=== PATIENT | male | born 1940 | race Caucasian/White ===

== ENCOUNTER 2023-10-27 00:45 | Inpatient (IN) | payer MEDICARE, BC, SELFPAY ==
[2023-10-26 20:17] VITALS: BMI 29.2
[2023-10-26 20:26] VITALS: BP 123/86
[2023-10-26 20:30] VITALS: BP 139/82
[2023-10-26 21:00] VITALS: BP 120/87
[2023-10-26 21:30] VITALS: BP 136/96
--- NOTE | 2023-10-26 22:14 | ED.GENMED ---
History of Present Illness
<GEO Naranjo - Last Filed: 10/27/23 01:43>
General
Chief Complaint: Fall
Source: family
Exam Limitations: dementia
Time Seen by Provider: 10/26/23 22:01
Nursing documentation reviewed up to this point in time: agreed with
Travel History
Have you had any contact with someone who has COVID-19?: Unable to Answer
Do you have any symptoms of coronavirus? Fever > 100 degrees, chills, cough, shortness of breath, sore throat, loss of taste or smell, muscle aches, or headache?: Unable to Answer
History of Present Illness
History of Present Illness:
This is an 83 year old male, with a PMH of alzheimers, who presents to the ED via EMS c/o fall. Per pt's , pt was sitting in his chair when she left him for 2 minutes and came back and found him on the floor. Pt was laying on his left side
calling out for his . She was unable to lift him so she called EMS. Immediately after the fall, pt began complaining of left leg pain. Pt's denies any loss of consciousness, nausea or vomiting. History limited due to pt's alzheimers.
Pt does not take any blood thinners or NSAIDs. He does not have any history of any orthopedic surgeries including hip or knee replacements. Pt normally ambulates with a walker and is able to walk albeit very slowly.
Past History
<GEO Naranjo - Last Filed: 10/27/23 01:43>
Past History
ED Past Medical History: Other (Dementia)
ED Past Surgical History: Negative Orthopedic
Patient has exhibited threatening behavior?: No
Social History
Tobacco: Non-smoker
Alcohol: None
Drug: None
Personal:
Living: with family
Employment: Retired
Review of Systems
<GEO Naranjo - Last Filed: 10/27/23 01:43>
Review of Systems
Unable to obtain full review of systems at this time due to: dementia
Other source history: family
All Other Systems: ROS reviewed and negative except as documented in HPI and ROS
Cardiac: Denies syncope
ABD/GI: Denies nausea or vomiting
Phy Exam
<GEO Naranjo - Last Filed: 10/27/23 01:43>
General Physical Exam
General Presentation: mild distress
General age: appears stated age
General Skin: warm and dry
General Habitus: elderly
General Mental: alert
General Hydration: dry mucous membranes
General Chronic Disability: demented
ENT Exam
ENT Exam: pharynx normal, neck supple, normocephalic and other (no masses, lumps, or ecchymoses noted on head.)
Eye Exam
Eye Exam: PERRL
Cardiovascular Exam
Cardiovascular Exam: regular rate/rhythm, no edema and no murmur
Heart Sounds: normal
Pulmonary Exam
Pulmonary Exam: lungs clear, no respiratory distress, no rales, no crackles, no rhonchi, no wheezing and no cough
Oxygen Status: oxygen 2 liters via NC
Gastrointestinal Exam
Gastrointestinal Exam: normal bowel sounds, non tender, soft and non distended
Neurological Exam
Neurological Exam: alert
Musculoskeletal Exam
Musculoskeletal Exam: no edema, neuro vasc intact and other (tenderness to palpation along left anterior and lateral upper leg, limited passive ROM compared to the right. There is no tenderness to palpation along upper extremities and right leg. No
tenderness along left hip or knee. No ecchymoses or lacerations noted.)
Skin Exam
Skin Exam: normal color and warm/dry
Psychiatric Exam
Psychiatric Exam: normal mood/affect
Course
<GEO Naranjo - Last Filed: 10/27/23 01:43>
Orders/Labs/Results
Orders:
Orders
10/26/23 22:15
CR Hip - LT w/wo Pel 2-3 Vw* Urgent
Comment:
Reason For Exam: Fall with left leg pain and limited ROM
Include a pelvis x-ray?: Yes
10/26/23 22:23
Urinalysis Reflex To Culture Urgent
10/26/23 22:29
Complete Blood Count/With Diff Urgent
Comprehensive Metabolic Panel Urgent
PTT Urgent
Prothrombin Time Urgent
10/26/23 23:32
CT Head W/o Iv Contrast Urgent
Comment:
Reason For Exam: fall
10/27/23 00:14
EKG [Electrocardiogram (*1)] Urgent
Reason for Study: PreOp
10/27/23 00:16
Admit/Transfer Patient As Directed
Co-Sign Provider:
Level of Care: Inpatient admission
Assign to:: Medical/Surgical
Physician / Group: [facility]
Diagnosis: Left Hip Fracture
Reason for Hospitalization: L Hip Fracture
Expected length of stay greater than two midnights?: Yes
ELOS- Estimated Length of Stay in days: 3
I certify the patient meets the requirements for IP care: Yes
10/27/23 00:17
Code Status As Directed
Resuscitation Status: Full Code
Abnormal Lab Results
10/26/23
22:29
RBC 4.51 L 10^6/uL
(4.70-6.10)
MCH 31.3 H pg
(27.0-31.0)
MPV 10.5 H fL
(7.4-10.4)
Absolute Lymphs (auto) 1.0 L 10^3/uL
(1.2-3.4)
Immature Gran % 0.6 H %
(0-0.5)
Lymphocytes % 15.7 L %
(20.5-51.1)
BUN 30 H mg/dl
(9-20)
Glucose 146 H mg/dl
(70-99)
10/26/23 22:29
10/26/23 22:29
Vital Signs
Initial and Last Documented VS:
Initial Vital Signs
Temp Pulse Resp Pulse Ox
97.6 F 96 21 94
10/26/23 20:22 10/26/23 20:22 10/26/23 20:22 10/26/23 20:22
Last Documented Vital Signs
Temp Pulse Resp BP Pulse Ox
98.5 F 114 18 130/78 92
10/27/23 01:38 10/27/23 01:30 10/27/23 01:30 10/26/23 22:30 10/27/23 00:45
<Rico Isaac, DO - Last Filed: 10/26/23 23:46>
Orders/Labs/Results
Orders:
Orders
10/26/23 22:15
CR Hip - LT w/wo Pel 2-3 Vw* Urgent
Comment:
Reason For Exam: Fall with left leg pain and limited ROM
Include a pelvis x-ray?: Yes
10/26/23 22:23
Urinalysis Reflex To Culture Urgent
10/26/23 22:29
Complete Blood Count/With Diff Urgent
Comprehensive Metabolic Panel Urgent
PTT Urgent
Prothrombin Time Urgent
10/26/23 23:32
CT Head W/o Iv Contrast Urgent
Comment:
Reason For Exam: fall
10/27/23 00:14
EKG [Electrocardiogram (*1)] Urgent
Reason for Study: PreOp
10/27/23 00:16
Admit/Transfer Patient As Directed
Co-Sign Provider:
Level of Care: Inpatient admission
Assign to:: Medical/Surgical
Physician / Group: Raymond
Diagnosis: Left Hip Fracture
Reason for Hospitalization: L Hip Fracture
Expected length of stay greater than two midnights?: Yes
ELOS- Estimated Length of Stay in days: 3
I certify the patient meets the requirements for IP care: Yes
10/27/23 00:17
Code Status As Directed
Resuscitation Status: Full Code
Abnormal Lab Results
10/26/23
22:29
RBC 4.51 L 10^6/uL
(4.70-6.10)
MCH 31.3 H pg
(27.0-31.0)
MPV 10.5 H fL
(7.4-10.4)
Absolute Lymphs (auto) 1.0 L 10^3/uL
(1.2-3.4)
Immature Gran % 0.6 H %
(0-0.5)
Lymphocytes % 15.7 L %
(20.5-51.1)
BUN 30 H mg/dl
(9-20)
Glucose 146 H mg/dl
(70-99)
10/26/23 22:29
10/26/23 22:29
Vital Signs
Initial and Last Documented VS:
Initial Vital Signs
Temp Pulse Resp Pulse Ox
97.6 F 96 21 94
10/26/23 20:22 10/26/23 20:22 10/26/23 20:22 10/26/23 20:22
Last Documented Vital Signs
Temp Pulse Resp BP Pulse Ox
98.5 F 114 18 130/78 92
10/27/23 01:38 10/27/23 01:30 10/27/23 01:30 10/26/23 22:30 10/27/23 00:45
Ionlt;GEO Naranjo - Last Filed: 10/27/23 01:43>
*Critical Care Note
Total Time (30-74mins, 75-104mins- exclusive of procedures): Not Applicable
<Rico Isaac DO - Last Filed: 10/26/23 23:46>
Update Note
Update Note:
10/26/2023 2333 PM: Spoke with Dr. Dumont, orthopedics to request that patient be kept n.p.o. He will see the patient in the morning.
ED Attending Note
<GEO Naranjo - Last Filed: 10/27/23 01:43>
-
Portions of this chart may have been created with voice recognition software.� Occasional wrong word or��sound alike� substitutions may have occurred due to the inherent limitations of voice recognition software.
<Rico Isaac DO - Last Filed: 10/26/23 23:46>
ED Attending Note
Patient seen and examined by attending physician: Yes
I performed the substantive portion of visit, reviewed & personally made and approve the management plan that is documented in note by myself or ANTONIO.: Yes
ED Attending Note:
This a pleasantly demented 83-year-old male that suffered an unwitnessed fall. Patient was sitting in a chair with his . She had got up to go to the other room and came back less than 2 minutes later with patient on the floor. was unable
to lift him so she called 911. Patient complains of left femur pain. He denies any hip pain. Reports no other injury. Patient has limited mobility. According to and daughter, he ambulates with a walker. He does get around but very slowly.
Patient was seen in conjunction with the PA student. I have reviewed and agree with the history and treatment plan presented. On my independent physical exam, patient is awake, alert, and at baseline mental status according to and daughter.
Focused physical exam left hip. Normal hip rolling test. Positive tenderness to palpation mid thigh with no obvious ecchymosis. Knee joint is intact with no midline joint tenderness. Good distal pulses.
Patient refused pain medication at this time.
Discharge Plan
Departure
Patient Disposition: Admit
Date of Disposition: 10/26/23
Time of Disposition: 23:46
Admit to: Telemetry
Presentation/result/management discussed w/ accepting MD/DO: Hospitalist
Discharge Problem:
Closed fracture of left hip
Interventions
Interventions:
*Risk Screen - Suicide Last Done: 10/26/23 20:22
*General Assessment Last Done: 10/26/23 20:22
*Neglect/Abuse Screening Last Done: 10/26/23 20:22
ED- Fall Risk Assessment Last Done: 10/27/23 01:39
*ED COVID-19 Vaccine History Last Done: 10/27/23 01:39
*Nursing Disposition Last Done: 10/27/23 01:39
ED-Musculoskeletal Assessment Last Done: 10/26/23 20:29
ED- Neurological Assessment Last Done: 10/26/23 20:29
ED-Skin Assessment Last Done: 10/26/23 20:29
Discharge Date and Time
Discharge Date/Time: 10/27/23 01:39
[2023-10-26 22:30] VITALS: BP 130/78
[2023-10-26 22:37] LABS: % Basophils 0.5 % (0-2); % Eosinophils 1.3 % (0-6); % Immature Granulocytes 0.6 % (0-0.5); % Lymphocytes 15.7 % (20.5-51.1); % Monocytes 7.2 % (1.7-9.3); % Neutrophils 74.7 % (42.2-75.2); Absolute Eosinophils 0.1 10^3/uL (0-0.7); Absolute Monocytes 0.5 10^3/uL (0.1-0.6); Absolute Neutrophils 4.7 10^3/uL (1.4-6.5); Hematocrit 41.5 % (39.0-52.0); Hemoglobin 14.1 g/dL (13.0-18.0); Mean Corpuscular Hgb 31.3 pg (27.0-31.0); Mean Platelet Volume 10.5 fL (7.4-10.4); Nucleated Red Blood Cells % 0 % (-); Platelet Count 253 10^3/uL (130-400); Red Blood Cell Count 4.51 10^6/uL (4.70-6.10); Red Cell Dist. Width 13.5 % (11.5-14.5); White Blood Cell Count 6.3 10^3/uL (4.8-10.8)
[2023-10-26 22:50] LABS: APTT 26.4 Sec (23.4-35.0); INR 1.12; PT 14.4 Sec (11.4-14.6)
[2023-10-26 22:51] LABS: ALT (SGPT) 21 U/L (0-50); AST (SGOT) 31 U/L (17-59); Albumin 3.6 g/dl (3.5-5.0); Alkaline Phosphatase 89 U/L (38-126); Blood Urea Nitrogen 30 mg/dl (9-20); Calcium 8.5 mg/dl (8.4-10.2); Carbon Dioxide 25 mmol/L (22-30); Chloride 106 mmol/L (98-107); Estimated Creatinine Clearance 66 ml/min; Glucose 146 mg/dl (70-99); Potassium 4.8 mmol/L (3.5-5.1); Sodium 140 mmol/L (135-145); Total Bilirubin 0.7 mg/dl (0.2-1.3); eGFR > 60.00
[2023-10-26 22:52] LABS: Total Protein 6.6 g/dl (6.3-8.2)
--- NOTE | 2023-10-27 00:24 | HPS.HSE ---
Family Physician
-
Family Physician: Toby Markham
Chief Complaint
-
Fall
History of Present Illness
Patient is an 83y M with PMH significant for senile dementia who presents to ED complaining of L hip pain s/p fall at home. History obtained from family at the bedside. Patient has limited ability to contribute secondary to baseline dementia.
states that she was in a different room this evening around 7:30 PM when she heard the patient shouting for her. She went to find him on the floor after an unwitnessed fall. He did not appear to have had any LOC and was not altered / more
confused. He was unable to get up - even with assistance and appeared to have discomfort in the L hip area. Patient was brought to the ED for further evaluation where he is noted to have L femur fracture.
denies any recent med changes, symptoms of acute illness, etc.
Patient is generally very healthy other than his dementia.
Only prior surgical history is a hernia repair, which was uncomplicated.
Medical History
Past Medical History
Past Medical History: Reports Other
Additional Past Medical History:
Senile Dementia
BPH
Past Surgical History: Reports Other
Additional Past Surgical History:
Herniorrhaphy
Social History
Tobacco: Non-smoker
Alcohol: None
Drug: None
Family History
Family History: Not pertinent
Allergies / Home Medications
Allergies reflects when Allergies were last updated in [employer].
Home Medications with original date entered in [employer]
Allergy/Medication List:
Allergies
Allergy/AdvReac Type Severity Reaction Status Date / Time
No Known Allergies Allergy Verified 08/27/17 10:00
Home Medications
donepezil 10 mg tablet (Aricept) 10 mg PO DAILY 10/27/23
doxazosin 4 mg tablet 4 mg PO HS 10/27/23
memantine 10 mg tablet 10 mg PO QPM 10/27/23
sertraline 50 mg tablet 50 mg PO DAILY 10/27/23
Review of Systems
-
Unable to obtain full review of systems at this time due to: Dementia
History Source: Patient and Family
Constitutional: Denies Fever or Chills
Respiratory: Denies Cough or Trouble Breathing
Cardiac: Denies Chest Pain or Palpitations
Abdomen/GI: Denies Nausea, Vomiting or Diarrhea
Musculoskeletal: Reports Joint Pain
Neurological: Denies Headache
Psych: Reports Dementia; Denies Depression or Anxiety
Physical Exam
Vital Signs
Vital Signs
Temp Pulse Resp BP Pulse Ox
97.6 F 99 26 130/78 95
10/26/23 20:22 10/26/23 22:30 10/26/23 22:30 10/26/23 22:30 10/26/23 22:30
Physical Exam
General: Other (83y M in mild distress due to pain / confusion.)
HEENT: Moist mucous membranes and PERRLA
Respiratory: Clear; No Wheezes, Rales or Rhonchi
Cardiac: S1/S2 and Regular Rhythm; No Murmur
GI: Soft, Non Tender, Non Distended and Normal Bowel Sounds
Musculoskeletal: No Clubbing, No Cyanosis and Other (LLE externally rotated.)
Neuro: Awake; No Oriented
Laboratory Results
-
10/26/23 22:29
10/26/23:
Laboratory Results
PT 14.4 Sec (11.4-14.6) 10/26/23:
INR 1.12 10/26/23:
APTT 26.4 Sec (23.4-35.0) 10/26/23:
Total Bilirubin 0.7 mg/dl (0.2-1.3) 10/26/23:
AST 31 U/L (17-59) 10/26/23
ALT 21 U/L (0-50) 10/26/23 22:29
Alkaline Phosphatase 89 U/L (38-126) 10/26/23 22:29
Impression/Plan
-
A/P: Patient is an 83y M with PMH significant for SDAT who presents to ED for evaluation of L hip pain s/p fall at home.
Left Femur Fracture
- Admit for further evaluation and treatment.
- Bedrest, pain control overnight.
- Ortho evaluation in the AM.
- NPO for probable operative repair.
- No significant medical history including personal history of heart disease, GA, stroke, etc.
- No prior complications related to surgery or anesthesia.
- EKG done in the ED is without evidence of active ischemia. Patient has no chest pain, dyspnea, etc.
- Patient is average risk for complications compared to an otherwise healthy individual of his age.
- Benefits of planned procedure outweigh the potential risks and patient may proceed to OR without additional pre-op evaluation(s).
- Post-op PT / OT, pain control, DVT prophylaxis, etc per Ortho.
Senile Dementia
- Stable. Continue usual home med regimen.
- Quetiapine PRN for any acute agitation - especially given mobility limitations due to fracture.
DVT Prophylaxis: SCDs for now. Post-op per Ortho.
Code Status: Full
[2023-10-27 02:22] VITALS: BP 135/80; BMI 28.0
[2023-10-27] MEDS: ROXICODONE 5 MG PO (03:07)
[2023-10-27 03:47] LABS: Urine Albumin Negative (Neg - Trace); Urine Bilirubin Negative (Negative); Urine Character Clear (Clear); Urine Color Yellow; Urine Glucose Negative (Negative); Urine Ketone Trace (Negative); Urine Leukocyte Negative (Negative); Urine Nitrite Negative (Negative); Urine Occult Blood Negative (Negative); Urine Urobilinogen Negative (Neg - 1+)
[2023-10-27] MEDS: SEROQUEL 12.5 MG PO ×2 (03:58→17:20)
--- NOTE | 2023-10-27 05:00 | TRANSFER ---
Pt arrived from ED at 0138 dx left hip fracture. Pt is not oriented at baseline, known dx of alzheimers - admission information obtained via phone from . Condom catheter applied d/t incontinence. Static overlay applied to bed and inflated. Bed
in lowest position.
0440 - obtained order for non violent restraints after pt pulled off condom catheter and attempted to pull out other lines. House provider ordered B/L mitts and wrists restraints after PRN agitation medication was not effective. Assessment ongoing.
[2023-10-27 06:15] LABS: Hematocrit 40.1 % (39.0-52.0); Hemoglobin 13.3 g/dL (13.0-18.0); Mean Corp Hgb Conc. 33.2 g/dL (33.0-37.0); Mean Corpuscular Volume 93.5 fL (80.0-94.0); Mean Platelet Volume 10.7 fL (7.4-10.4); Platelet Count 247 10^3/uL (130-400); Red Blood Cell Count 4.29 10^6/uL (4.70-6.10); Red Cell Dist. Width 13.5 % (11.5-14.5); White Blood Cell Count 10.4 10^3/uL (4.8-10.8)
[2023-10-27 06:35] LABS: Blood Urea Nitrogen 26 mg/dl (9-20); Calcium 8.3 mg/dl (8.4-10.2); Carbon Dioxide 24 mmol/L (22-30); Chloride 109 mmol/L (98-107); Estimated Creatinine Clearance 60 ml/min; Glucose 120 mg/dl (70-99); Potassium 4.4 mmol/L (3.5-5.1); Sodium 139 mmol/L (135-145); eGFR > 60.00
[2023-10-27 07:42] VITALS: BP 100/64
--- NOTE | 2023-10-27 07:57 | W.PN.UPDATE ---
Update Note
Progress Note Update
Patient seen and examined this morning. Will discuss plan of care with .
Plan for OR tomorrow morning for left hip avel for displaced left femoral neck fracture
NPO at midnight
Formal consult note to follow
--- NOTE | 2023-10-27 08:56 | W.PN.HOSP.TC ---
Addendum entered and electronically signed by Jay Becerra MD 10/27/23 15:03:
Patient seen and examined
Discussed with resident
83 years old male with senile dementia presented with mechanical fall and left hip fracture.
No evidence of syncope or head trauma.
Medically stable for surgical intervention with no indication for additional workup as patient has no prior history of CAD/CHF/renal insufficiency/diabetes and remains mild to moderate risk with no prohibitive risk for moderate risk procedure
Continue supportive care
N.p.o. postmidnight.
Original Note:
Today's Communication/Plan
-
N.p.o. in p.m.
Plan for left hip hemiarthroplasty tomorrow
IVF
Pain control
Assessment / Plan
Assessment / Plan
-
Impression
Patient reports left hip pain due to a fall at home
Senile dementia
Mild dehydration
Plan
Patient reports left hip pain due to a fall at home
-Head CT with no acute intracranial abnormalities.
-Hip x-ray with displaced transverse fracture of left femoral neck.
-Recent EKG without any acute ischemic processes. Patient afebrile and appears comfortable.
-Patient's only surgery was a hernia repair which was uneventful with no complications.
-Plan for left hip hemiarthroplasty in a.m., although patient is at increased risk for complications, benefits of the procedure outweighs potential risks.
-N.p.o. in p.m.
-Pain control.
-IV fluids
-Dry weight 88.5 kg, follow weight
-PT/OT
Senile dementia
-Patient stable
-Continue donepezil and memantine
-Quetiapine as needed for acute agitation
DVT Prophylaxis:� SCDs for now.� Post-op per Ortho.
Anticipated Discharge: 24 - 48 hours
Subjective/Interval History
-
Date of Service: October 27, 2023
Patient desisted 83-year-old male with past medical history of Alzheimer's dementia, presented to the ED with his with complaints of left hip pain after falling at home. Patient's left him for a few minutes and heard him calling her
name, only to find him on the floor upon returning to him. Patient had fallen from his seat and now complains of left hip pain. Medical history obtained from patient's since patient cannot provide any good history due to dementia. Patient's
denied any changes in patient's health or his medications, reported that patient has been in good health prior to this incident.
Objective Data
-
Labs:
Laboratory Results
10/26/23 10/27/23
22:29 04:42
WBC 6.3 10.4
Hgb 14.1 13.3
Hct 41.5 40.1
Plt Count 253 247
PT 14.4
INR 1.12
APTT 26.4
Sodium 140 139
Potassium 4.8 4.4
Chloride 106 109 H
Carbon Dioxide 25 24
BUN 30 H 26 H
Creatinine 0.9 1.0
Glucose 146 H 120 H
Calcium 8.5 8.3 L
Total Bilirubin 0.7
AST 31
ALT 21
Alkaline Phosphatase 89
Vital Signs:
Vital Signs
Temp Pulse Resp BP Pulse Ox
99.9 F 109 19 100/64 99
10/27/23 07:42 10/27/23 07:42 10/27/23 07:42 10/27/23 07:42 10/27/23 07:42
I&O
10/26/23 10/27/23 10/28/23
06:59 06:59 06:59
Intake Total 60 / 60
Output Total 105 / 105
Balance -45 / -45
Review of Systems
-
Unable to obtain full review of systems at this time due to: Dementia
Physical Exam
-
General: No Apparent Distress; Negative Respiratory Distress
HEENT: Moist Mucous Membranes
Respiratory: Clear to Auscultation and Non Labored Respirations
Cardiac: Negative Murmur or Rub
GI: Nondistended and Normal Bowel Sounds
Neuro: Awake; Negative Oriented or AO x 3
Psych: Confused
Data Reviewed
-
CT Scan: Image personally visualized and interpreted, Report Reviewed by me and Discussed with Physician
Labs: Labs Reviewed by me and Discussed with Physician
Old Records: Reviewed
[2023-10-27] MEDS: COLACE 100 MG PO ×2 (09:06→21:45)
[2023-10-27] MEDS: ZOLOFT 50 MG PO (09:06)
[2023-10-27] MEDS: TYLENOL 1000 MG PO ×3 (09:06→21:45)
[2023-10-27] MEDS: SENOKOT 8.59999999999999964 MG PO ×2 (09:06→21:46)
[2023-10-27] MEDS: ARICEPT 10 MG PO (09:07)
--- NOTE | 2023-10-27 10:05 | CM ---
Reviewed the chart notes and spoke with the patient's spouse via telephone. Patient expected to go to OR tomorrow. The patient's spouse has been the caregiver for the patient for nine years. They resides in a ranch home with finished basement.
The patient uses a cane and there is a grab bar in shower. The patient has not had VN nor been to a SNF in the past. The patient's spouse is aware patient will needs short term rehab. The pharmacy of choice is the [facility].
continues to be available to patient/family and is monitoring medical plan for needs at discharge.
Plan: Discharge to SNF when medically stable, bed found, and precert obtained.
--- NOTE | 2023-10-27 11:30 | WOUNDNOTE ---
[facility] RN note: Patient admitted with L hip fracture. Patient for hip repair tomorrow.
See H&P for complete history.
PMH: dementia, hernia repair.
Wound Location and type/assessment: Patient admitted with: Shaniqua/coccyx MASD, sacral stage 1 redness.
Appetite: NPO.
Pressure redistribution devices in place: Waffle air overlay.
Plan: Silicone border foam applied to sacrum. Calazime ointment to shaniqua/coccyx. Patient turned to L semi side lying position with help from PCT Doug. Heels off bed with air chair cushion. Foam dressing maintained on heels.
Care plan to be updated. Will sign off. Reconsult as needed.
Note to case management of equipment requested for discharge: Air mattress.
--- NOTE | 2023-10-27 14:58 | PN.CDI ---
CDI
- -
CDI:
Physician Documentation Request
Admit Date: 10/27/23 00:45
Dear Doctor Mariam,
Please review the following and provide your response in the progress notes.
Clinical Indicators:
10/27/23 11:30 - Wound Note
#Wound Location and type/assessment:
#...Patient admitted with: Albina/coccyx MASD, sacral stage 1 redness.
Physician documentation of the type and location of wounds is required for compliant documentation. Based on the above clinical findings and your assessment, please provide the following in your progress note:
Yes, Sacral stage 1 pressure injury, POA
No, Sacral stage 1 pressure injury
Other
1. Location of the ulcer/wound, including laterality.
2. Type (etiology) of ulcer/wound:
- Diabetic ulcer
- Arterial (ischemic) ulcer
- Venous stasis ulcer
- Pressure (decubitus) ulcer
3. If a pressure ulcer, please also include the stage* of the ulcer:
- Stage 1 - Skin intact, non-blanchable redness
- Stage 2 - Partial thickness loss of dermis, includes intact or open blister
- Stage 3 - Full thickness tissue not including bone, tendon or muscle
- Stage 4 - Full thickness tissue loss, including exposed bone, tendon or muscle
Use of terms such as suspected, likely, concern for, or probable (associated with a specific diagnosis that is being evaluated, monitored, or treated as if it exists) are acceptable and can be coded in the inpatient setting, when documented at the
time of discharge.
Thank you,
Eliz Hansen RN BSN CCDS
CDI Specialist
please contact via tiger text
Please use your independent medical judgment in providing your response.
*Source: National Pressure Ulcer Advisory Panel (NPUAP)
--- NOTE | 2023-10-27 15:02 | PN.CDI ---
CDI
- -
CDI:
Physician Documentation Request
Admit Date: 10/27/23 00:45
Dear Doctor Mariam,
Please review the following and provide your response in the progress notes.
Clinical Indicators:
ED, 10/26
#...PMH of alzheimers, who presents to the ED via EMS c/o fall.
#...Per pt's , pt was sitting in his chair when she left him for 2 minutes
#...and came back and found him on the floor.
#...Pt was laying on his left side calling out for his .
#...suffered an unwitnessed fall.
#Closed fracture of left hip
Please clarify the following regarding the etiology of the left hip fracture:
Multifactorial due to low level trauma and age related osteoporosis, osteoporosis of disuse, etc.
Traumatic fracture only
Other
Type Fracture
Age-related With current pathological fx
Drug induced (specify drug) without current pathological fx
Idiopathic
Osteoporosis of disuse
Post traumatic
Use of terms such as suspected, likely, concern for, or probable (associated with a specific diagnosis that is being evaluated, monitored, or treated as if it exists) are acceptable and can be coded in the inpatient setting, when documented at the
time of discharge.
Thank you,
Eilz Hansen RN BSN CCDS
CDI Specialist
Please contact via tiger text
Please use your independent medical judgment in providing your response.
[2023-10-27 15:54] VITALS: BP 120/78
--- NOTE | 2023-10-27 16:54 | CON.ORTHO ---
Consultation
-
Date/Time Consultation Requested: 11:30 PM 10/26/2023
Date/Time Consultation Performed: 730 AM 10/27/2023
Requesting Provider: Poncho
Performing Provider: Tim
Reason for Consultation: Left hip fracture
Consultation - Orthopedics
History
HPI: 83-year-old male history of dementia presented to us on emergency department status post fall with complaints of left hip pain and inability to bear weight. He does live at home with his . He was subsequently diagnosed with a displaced
left femoral neck fracture and was admitted to the hospital service for ambulatory dysfunction. Orthopedics was consulted for further evaluation and treatment. This morning patient is quite confused and unable to provide any history. I did speak
with his on the phone however who did report that he sustained a fall at home.
Allergies / Home Medications
Past medical history: Dementia, BPH
Past surgical history: Hernia repair
Social history: Non-smoker, lives at home with family
Family history: Not pertinent
Allergy/AdvReac Type Severity Reaction Status Date / Time
No Known Allergies Allergy Verified 08/27/17 10:00
Medication Instructions Recorded
donepezil 10 mg tablet (Aricept) 10 mg PO DAILY 10/27/23
doxazosin 4 mg tablet 4 mg PO HS 10/27/23
memantine 10 mg tablet 10 mg PO QPM 10/27/23
sertraline 50 mg tablet 50 mg PO DAILY 10/27/23
Vital Signs / Lab Results
Temp Pulse Resp BP Pulse Ox
98.6 F 87 16 120/78 94
10/27/23 15:54 10/27/23 15:54 10/27/23 15:54 10/27/23 15:54 10/27/23 15:54
10/27/23 04:42
10/27/23 04:42
10 point review systems reviewed and negative unless otherwise stated
General: Uncomfortable appearing, noncompliant with commands
Musculoskeletal left lower extremity
Skin intact, no erythema, no ecchymosis
Extremity shortened externally rotated
There is tenderness palpation over groin and lateral trochanteric flare
No ipsilateral palpable knee effusion
Spontaneously moving toes and ankle
Brisk cap refill distally
No other areas of palpable crepitus or visible grimace with palpation of long bones and joints on tertiary examination
Diagnostic studies
X-rays left hip reviewed show displaced left femoral neck fracture transcervical
Assessment / Plan
83-year-old male history of dementia status post fall with displaced left femoral neck fracture. I had a long discussion with the patient's regarding the diagnosis and treatment options. We discussed both surgical and nonsurgical options.
Given the patient's activity level age and fracture pattern, it was my recommendation proceed with left hip hemiarthroplasty. We discussed risks benefits and alternatives to surgery. Discussed the usual expected perioperative and postoperative
course. After discussion, verbal consent was obtained from the patient's over the telephone for left hip hemiarthroplasty
Nonweightbearing left lower extremity
DVT prophylaxis: Hold in preparation for OR
N.p.o. at midnight
Pain control
Medical management per primary team
Plan: 2 OR tomorrow morning for left hip hemiarthroplasty pending medical clearance in OR availability
[2023-10-27] MEDS: NAMENDA 10 MG PO (17:09)
[2023-10-27] MEDS: CARDURA 4 MG PO (21:45)
[2023-10-27 21:52] VITALS: BP 135/87
[2023-10-27 23:18] VITALS: BP 130/78
[2023-10-28] VITALS (12 sets, daily range): BP systolic 86–134; BP diastolic 45–95; O2SAT 90; BMI 28.3
[2023-10-28] MEDS: SEROQUEL 12.5 MG PO ×2 (02:07→16:07)
--- NOTE | 2023-10-28 10:42 | OR.RPT ---
Operative Report
Operative Report
Anesthesia Type:
General
Operative Indications:
Left displaced femoral neck fracture
Operative Findings :
Same
Complications:
None
Implants:
Michele Biomet size 14 femoral stem, 54 bipolar shell, 28+3.5 mm head, cemented
Procedure and Technique:
Left cemented hip hemiarthroplasty
INDICATIONS FOR PROCEDURE:
83-year-old male history of dementia status post fall presented to the emergency department with complaints of left hip pain and inability to bear weight. He was subsequently diagnosed with a left femoral neck fracture admitted to the hospitalist
service for ambulatory dysfunction. Orthopedics was consulted for further evaluation and treatment. Discussed options both surgical and nonsurgical with the patient's . Was my recommendation proceed with left hip hemiarthroplasty given
patient's age functional status and fracture pattern. We discussed risks benefits and alternatives to surgery. We discussed the usual expected perioperative and postoperative course. After discussion verbal consent was obtained over the telephone
for left hip hemiarthroplasty.
OPERATIVE PROCEDURE:
Patient was seen and identified in the preoperative holding area. Operative extremity was marked. Patient was taken to the operating room and anesthesia was administered by the anesthesia providers. Patient was then placed in a lateral decubitus
position with the use of a beanbag. All bony prominences were well-padded. Operative extremity was then prepped and draped in normal sterile fashion. Timeout was performed again identifying the correct operative extremity. Preoperative
antibiotics were addressed. Standard posterolateral approach to the hip was taken. Sharp dissection was carried through skin and subcutaneous tissues and deep fascial layer. Hemostasis was achieved with electrocautery. Hip was then placed on
slight internal rotation to place the external rotators on stretch. Piriformis was identified and a Cobra retractor was then placed under the gluteus medius and minimus. Piriformis and short external rotators were taken down and tagged. A T
capsulotomy was then performed and capsular leaflets were also tagged. The fracture was identified and a freshen up cut was performed. The femoral head was then removed and sized. Appropriately sized ball on a stick was then placed into the
acetabulum and felt to have appropriate suction fit. Attention was then turned to the proximal femur where soft tissue remnants were removed from the piriformis fossa. Remnant neck was removed with the use of a cookie cutter. Canal finder was
then placed in addition to lateralizing reamer. Stepwise broaching was then performed to the appropriate size. Implants were then trialed and found to have appropriate stability and deep flexion, internal rotation, shuck and adduction. Implants
were then removed and canal was copiously irrigated normal saline solution. Cement restrictor was then placed. Pressurized cement was then placed into the femoral canal and appropriately sized femoral broach was then placed in the appropriate
version. After cement had hardened, final implants were then placed and the hip was again taken through range of motion and found to be quite stable. Satisfied with the extent of surgery, wound was copiously irrigated with normal saline solution
and a Betadine solution. The capsule, piriformis and short external rotators were then repaired through osseous tunnels into the greater trochanter. Wound was then closed in a layered fashion utilizing 0 Vicryl for deep fascial layer, 2-0 Vicryl
for subcutaneous layer and patrick for skin. Aquacel dressing was then placed. Anesthesia was reversed and patient was taken to PACU in a stable condition. Postoperative plans will include weightbearing to the patient's tolerance in the operative
extremity. Posterior hip precautions will be advised. Recommend DVT prophylaxis consisting of renally dosed Lovenox daily for 28 days unless patient is already on baseline anticoagulation. Will plan to see patient back in 2 weeks for
postoperative evaluation with planned removal of patrick.
Disposition:
PACU, stable condition
--- NOTE | 2023-10-28 10:53 | W.PN.HOSP.TC ---
Today's Communication/Plan
-
see A/P
Assessment / Plan
Assessment / Plan
Impression
Patient reports left hip pain due to a fall at home
Senile dementia
Mild dehydration
Plan
Patient reports left hip pain due to a fall at home
Head CT with no acute intracranial abnormalities.
Hip x-ray with displaced transverse fracture of left femoral neck.
Recent EKG without any acute ischemic processes. Patient afebrile and appears comfortable.
Patient's only surgery was a hernia repair which was uneventful with no complications.
s/p left hip hemiarthroplasty 10/28
PT OT eval post op
Placed on 2L NC, wean O2, pt not on home O2
Pain control.
IV fluids. Dry weight 88.5 kg, follow weight
Senile dementia, stable
Continue donepezil and memantine
Quetiapine as needed for acute agitation
DVT Prophylaxis:�Lovenox SQ per Ortho.
DW RN
DW at bedside
Anticipated Discharge: 24 - 48 hours
Subjective/Interval History
-
Date of Service: October 28, 2023
Objective Data
-
Vital Signs:
Vital Signs
Temp Pulse Resp BP Pulse Ox
37.2 C 107 20 134/89 95
10/28/23 07:21 10/28/23 07:21 10/28/23 07:21 10/28/23 07:21 10/28/23 07:21
I&O
10/27/23 10/28/23 10/29/23
06:59 06:59 06:59
Intake Total 60 / 60 240 / 240
Output Total 105 / 105 300 / 300
Balance -45 / -45 -60 / -60
Review of Systems
-
All other systems: Reviewed and negative
Physical Exam
-
General: Well Developed, Well Nourished and Conversant
HEENT: Moist Mucous Membranes and Oxygen (2L NC)
Respiratory: Clear to Auscultation and Non Labored Respirations
Cardiac: Regular Rhythm and S1/S2
GI: Soft and Nontender
Neuro: Awake
Psych: Calm
Data Reviewed
-
Labs: Labs Reviewed by me
--- NOTE | 2023-10-28 11:55 | PTCARENOTE ---
Pt received from PACU 4L NC, incision CDI. Patient with occasional wheezing. Patient very sleepy arousable to voice then falls back to sleep. Family at bedside instructed to not feed or give fluids to pt. till he is fully awake.
[2023-10-28] MEDS: COLACE PO (12:02)
[2023-10-28] MEDS: SENOKOT PO (12:02)
[2023-10-28] MEDS: TYLENOL PO (12:03)
[2023-10-28] MEDS: NSS 1000 IV ×2 (12:24→21:56)
[2023-10-28] MEDS: ARICEPT 10 MG PO (13:31)
[2023-10-28] MEDS: ZOLOFT 50 MG PO (13:31)
[2023-10-28] MEDS: TYLENOL 1000 MG PO ×2 (16:08→21:20)
[2023-10-28] MEDS: ANCEF 5 IV ×2 (16:08→23:06)
[2023-10-28] MEDS: NAMENDA 10 MG PO (16:08)
--- NOTE | 2023-10-28 16:15 | PTCARENOTE ---
Patient bladder scanned for 308.
[2023-10-28] MEDS: COLACE 100 MG PO (21:19)
[2023-10-28] MEDS: CARDURA 4 MG PO (21:19)
[2023-10-28] MEDS: SENOKOT 8.59999999999999964 MG PO (21:20)
[2023-10-28] MEDS: ROXICODONE 5 MG PO (21:24)
[2023-10-29] VITALS (7 sets, daily range): BP systolic 105–127; BP diastolic 61–83; PULSE 82–84; O2SAT 95; BMI 29.0
[2023-10-29 05:13] LABS: Hematocrit 35.5 % (39.0-52.0); Hemoglobin 11.6 g/dL (13.0-18.0); Mean Corp Hgb Conc. 32.7 g/dL (33.0-37.0); Mean Corpuscular Hgb 30.9 pg (27.0-31.0); Mean Corpuscular Volume 94.7 fL (80.0-94.0); Mean Platelet Volume 10.3 fL (7.4-10.4); Platelet Count 185 10^3/uL (130-400); Red Blood Cell Count 3.75 10^6/uL (4.70-6.10); Red Cell Dist. Width 13.5 % (11.5-14.5); White Blood Cell Count 9.5 10^3/uL (4.8-10.8)
[2023-10-29 05:40] LABS: Blood Urea Nitrogen 34 mg/dl (9-20); Calcium 7.9 mg/dl (8.4-10.2); Carbon Dioxide 28 mmol/L (22-30); Chloride 104 mmol/L (98-107); Estimated Creatinine Clearance 50 ml/min; Glucose 146 mg/dl (70-99); Potassium 4.8 mmol/L (3.5-5.1); Sodium 138 mmol/L (135-145); eGFR > 60.00
--- NOTE | 2023-10-29 06:36 | PTCARENOTE ---
Pt in urinary retention, bladder scan @ this time 196ml
[2023-10-29] MEDS: TYLENOL 1000 MG PO ×3 (08:27→22:14)
[2023-10-29] MEDS: ARICEPT 10 MG PO (08:27)
[2023-10-29] MEDS: ZOLOFT 50 MG PO (08:27)
[2023-10-29] MEDS: COLACE 100 MG PO ×2 (08:27→20:10)
[2023-10-29] MEDS: LOVENOX 40 MG SC (08:28)
[2023-10-29] MEDS: SENOKOT 8.59999999999999964 MG PO ×2 (08:28→20:10)
[2023-10-29] MEDS: NSS 1000 IV (08:29)
--- NOTE | 2023-10-29 10:48 | W.PN.HOSP.TC ---
Today's Communication/Plan
-
see A/P
Assessment / Plan
Assessment / Plan
Impression
Patient reports left hip pain due to a fall at home
Senile dementia
Mild dehydration
Plan
Patient reports left hip pain due to a fall at home
Head CT with no acute intracranial abnormalities.
Hip x-ray with displaced transverse fracture of left femoral neck.
Recent EKG without any acute ischemic processes. Patient afebrile and appears comfortable.
Patient's only surgery was a hernia repair which was uneventful with no complications.
s/p left hip hemiarthroplasty 10/28
DVT ppx with Lovenox SQ per Ortho.
PT OT post op recc SNF
Pain control.
Pt eating well post op, DC further IVF
Senile dementia
Continue donepezil and memantine
Quetiapine as needed for acute agitation
due to behavioral disturbance, hand mitts placed, cont to monitor mood and consider DC hand mitts
Acute hypoxic respiratory insufficiency
Placed on 2L NC, wean O2 as tolerated, pt not on home O2
DVT Prophylaxis:�Lovenox SQ per Ortho.
DW RN
DW daughter and OTTO at bedside
Anticipated Discharge: 24 - 48 hours
Subjective/Interval History
-
Date of Service: October 29, 2023
Objective Data
-
Labs:
Laboratory Results
10/29/23
04:53
WBC 9.5
Hgb 11.6 L
Hct 35.5 L
Plt Count 185 D
Sodium 138
Potassium 4.8
Chloride 104
Carbon Dioxide 28
BUN 34 H
Creatinine 1.2
Glucose 146 H
Calcium 7.9 L
Vital Signs:
Vital Signs
Temp Pulse Resp BP Pulse Ox
36.2 C 99 20 127/83 93
10/29/23 07:35 10/29/23 07:35 10/29/23 07:35 10/29/23 07:35 10/29/23 07:35
I&O
10/28/23 10/29/23 10/30/23
06:59 06:59 06:59
Intake Total 240 / 240 800 / 800
Output Total 300 / 300 900 / 900
Balance -60 / -60 -100 / -100
Review of Systems
-
Unable to obtain full review of systems at this time due to: Dementia
Physical Exam
-
General: Well Developed and Well Nourished
HEENT: Oxygen (2L NC)
Respiratory: Clear to Auscultation and Non Labored Respirations; Negative Accessory Resp Muscle Use
Cardiac: Regular Rhythm and S1/S2
GI: Soft and Nontender
Psych: Calm and Apparent Dementia
Data Reviewed
-
Labs: Labs Reviewed by me
--- NOTE | 2023-10-29 11:06 | CM ---
Reviewed the chart notes. PT recommending SNF prior to transitioning back to home. Referrals with [facility] sent [facility]. CM continues to be available to patient/family and is monitoring medical plan for needs at discharge.
Plan: Discharge to SNF once bed found.
--- NOTE | 2023-10-29 11:54 | W.PN.ORTHO ---
Today's Communication / Plan
-
83-year-old male history of dementia postop day 1 status post left hip hemiarthroplasty for femoral neck fracture
Weightbearing as tolerated left lower extremity
PT OT
DVT prophylaxis: Recommend Lovenox x 28 days daily
Pain control
Posterior hip precautions
Follow-up outpatient 2 weeks for repeat evaluation with planned removal of patrick
Subjective
.
.:
Patient sleeping comfortably family at bedside. Unarousable.
Vital Signs and Labs
.
Vital Signs and Labs:
Lab Results
10/29/23 04:53
10/29/23 04:53
Temp Pulse Resp BP Pulse Ox
97.3 F 82 18 110/72 96
10/29/23 11:10 10/29/23 11:10 10/29/23 11:10 10/29/23 11:10 10/29/23 11:10
PT 14.4 Sec (11.4-14.6) 10/26/23 22:29
INR 1.12 10/26/23 22:29
Physical Exam
-
Musculoskeletal left lower extremity
Dressing without significant drainage
Mild swelling left thigh and lower leg
Brisk cap refill distally
--- NOTE | 2023-10-29 16:15 | CM ---
Reviewed the chart notes and spoke with the patient' spouse at the bedside. IMM signed and placed on the chart. The patient resides with his spouse in a one story rancher with a basement. The patient has a cane and shower chair in the home. The
patient h as not had VN or SNF in the past. The patient will need SNF at discharge. Referrals were sent along with [facility]. CM continues to be available to patient/family and is monitoring medical plan for needs at discharge.
Plan: Discharge to SNF once bed found and precert obtained from [facility].
[2023-10-29] MEDS: NAMENDA 10 MG PO (17:27)
[2023-10-29] MEDS: SEROQUEL 12.5 MG PO (18:33)
[2023-10-29] MEDS: ROXICODONE 5 MG PO (20:14)
[2023-10-29] MEDS: CARDURA 4 MG PO (22:13)
[2023-10-30 05:15] LABS: Hematocrit 34.4 % (39.0-52.0); Hemoglobin 11.4 g/dL (13.0-18.0); Mean Corp Hgb Conc. 33.1 g/dL (33.0-37.0); Mean Corpuscular Hgb 31.7 pg (27.0-31.0); Mean Corpuscular Volume 95.6 fL (80.0-94.0); Mean Platelet Volume 10.8 fL (7.4-10.4); Platelet Count 183 10^3/uL (130-400); Red Cell Dist. Width 13.6 % (11.5-14.5); White Blood Cell Count 7.6 10^3/uL (4.8-10.8)
[2023-10-30 05:25] LABS: Blood Urea Nitrogen 35 mg/dl (9-20); Calcium 7.9 mg/dl (8.4-10.2); Carbon Dioxide 28 mmol/L (22-30); Chloride 103 mmol/L (98-107); Estimated Creatinine Clearance 60 ml/min; Glucose 99 mg/dl (70-99); Potassium 4.3 mmol/L (3.5-5.1); Sodium 137 mmol/L (135-145); eGFR > 60.00
[2023-10-30 07:55] VITALS: BP 131/85
--- NOTE | 2023-10-30 08:14 | PN.CDI ---
CDI
- -
CDI:
Physician Documentation Request
Admit Date: 10/27/23 00:45
Dear Doctor Mariam,
Please review the following and provide your response in the progress notes.
Clinical Indicators:
10/27 admitted left hip fracture
10/28 left hip hemiarthroplasty
Laboratory Tests
10/26/23 10/27/23 10/29/23
22:29 04:42 04:53
Hgb 14.1 13.3 11.6 L
10/30/23
04:12
Hgb 11.4 L
Based on the above and your clinical assessment, please clarify, in the progress note, which of the following is the most likely condition/diagnosis evaluated, monitored and/or treated?
Acute blood loss anemia
Abnormal lab value,clinically insignificant
Other
Use of terms such as suspected, likely, concern for, or probable (associated with a specific diagnosis that is being evaluated, monitored, or treated as if it exists) are acceptable and can be coded in the inpatient setting, when documented at the
time of discharge.
Thank you,
Eliz Hansen RN BSN CCDS
CDI Specialist
please contact via tiger text
Please use your independent medical judgment in providing your response.
--- NOTE | 2023-10-30 08:21 | PN.CDI ---
CDI
- -
CDI:
Physician Documentation Request
Admit Date: 10/27/23 00:45
Dear Doctor Mariam,
Please review the following and provide your response in the progress notes.
Clinical Indicators:
PN, 10/28
#Placed on 2L NC, wean O2, pt not on home O2
PN, 10/29
#Acute hypoxic respiratory insufficiency
#Placed on 2L NC, wean O2 as tolerated, pt not on home O2
Selected Entries
10/28/23
10:17 10/28/23
10:32 10/28/23
10:45
Oxygen Mode of Delivery:
Flow liters per minute # 8 8 8
Oxygen Mode of Delivery Simple mask Simple mask Simple mask
Nasal Cannula flow liters per minute
10/28/23
11:00 10/28/23
11:15 10/28/23
11:30
Oxygen Mode of Delivery: Nasal cannula
Flow liters per minute # 6 6
Oxygen Mode of Delivery Simple mask Simple mask
Nasal Cannula flow liters per minute 4
# 10/28 3-4 L O2 NC
# 10/29 2L O2 NC then increased to Midflow
Based on the above and your clinical assessment, please clarify which of the following accurately represents the patient's respiratory status:
Acute respiratory failure
Acute pulmonary insufficiency (following surgery)
Acute respiratory insufficiency
Hypoxia
Other
Additional information for Pulmonary Insufficiency:
Consider when patients require intermodal customer service oxygen therapy postoperatively
Weaned off oxygen initially then requiring supplemental oxygen
No other definitive diagnosis to support the need for oxygen (COPD exac, CHF etc.)
Unable to wean from vent
When criteria for respiratory failure not present
May extend stay or require additional resources; may need home O2
Additional information for Respiratory Failure:
Recognized criteria for Respiratory Failure (Source: [facility] Jul 2013)
Symptoms
1. Tachypnea, SOB, dyspnea
2. Use of accessory muscles
3. Pallor or cyanosis
4. Anxiety or restlessness
5. Unable to speak in full sentences
Supplemental O2 of > 40% (5LPM) Intubation is not required
Use of terms such as suspected, likely, concern for, or probable (associated with a specific diagnosis that is being evaluated, monitored, or treated as if it exists) are acceptable and can be coded in the inpatient setting, when documented at the
time of discharge.
Thank you,
Eliz Hansen RN BSN CCDS
CDI Specialist
please contact via tiger text
Please use your independent medical judgment in providing your response.
--- NOTE | 2023-10-30 08:32 | PN.CDI ---
CDI
- -
CDI:
Physician Documentation Request
Admit Date: 10/27/23 00:45
Dear Doctor Mariam,
Please review the following and provide your response in the progress notes.
Clinical Indicators:
10/27 admitted left hip fracture
10/28 left hip hemiarthroplasty
#Blood Loss: 150 mL
Laboratory Tests
10/26/23 10/27/23 10/29/23
22:29 04:42 04:53
Hgb 14.1 13.3 11.6 L
10/30/23
04:12
Hgb 11.4 L
Based on the above and your clinical assessment, please clarify, in the progress note, which of the following is the most likely condition/diagnosis evaluated, monitored and/or treated?
Acute blood loss anemia
Abnormal lab value,clinically insignificant
Other
Use of terms such as suspected, likely, concern for, or probable (associated with a specific diagnosis that is being evaluated, monitored, or treated as if it exists) are acceptable and can be coded in the inpatient setting, when documented at the
time of discharge.
Thank you,
Eliz Hansen RN BSN CCDS
CDI Specialist
please contact via tiger text
Please use your independent medical judgment in providing your response.
[2023-10-30] MEDS: SENOKOT 8.59999999999999964 MG PO ×2 (08:35→19:52)
[2023-10-30] MEDS: TYLENOL 1000 MG PO ×2 (08:35→18:33)
[2023-10-30] MEDS: ZOLOFT 50 MG PO (08:35)
[2023-10-30] MEDS: COLACE 100 MG PO ×2 (08:36→19:52)
[2023-10-30] MEDS: LOVENOX 40 MG SC (08:36)
[2023-10-30] MEDS: ROXICODONE 5 MG PO ×2 (08:36→21:54)
[2023-10-30] MEDS: ARICEPT 10 MG PO (08:37)
[2023-10-30 10:32] VITALS: BP 116/73; PULSE 106; O2SAT 91
--- NOTE | 2023-10-30 12:03 | CM ---
Plan Skilled rehab when bed medically stable and bed available.
No Auth required.
--- NOTE | 2023-10-30 13:13 | W.PN.HOSP.TC ---
Addendum entered and electronically signed by Jay Becerra MD 10/30/23 15:04:
Patient seen and examined
Discussed with resident
Discussed with nursing
Discussed with patient's at the bedside
Status post right hip fracture/hemiarthroplasty.
Continue DVT prophylaxis with Lovenox as recommended
Continue PT/OT.
Hypoxic respiratory insufficiency noted with pulse ox and high 80s while at rest
Currently with no evidence of respiratory distress while on nasal cannula oxygen at 2 L per
Visibly volume overloaded with peripheral edema and Rales.
Single dose of Lasix 20 mg IV to be provided.
Wean off oxygen as tolerates
Monitor for recurrent urine retention
Continue bladder scan following response to Lasix
Treat constipation with Doculax
Original Note:
Today's Communication/Plan
-
Urinary retention, straight cath.
Postop day 2
Weightbearing as tolerated left lower extremity with posterior hip precautions.
PT/OT.
Continue Lovenox daily for additional 27 days.
Pain control.
Follow-up outpatient 2 weeks for repeat evaluation with planned removal of patrick
Assessment / Plan
Assessment / Plan
Impression
Patient's family reports left hip pain due to a fall at home
Senile dementia
Mild dehydration
Plan
Patient with reported mechanical fall at home with possible left hip fracture.
Head CT with no evidence of intracranial abnormalities or head trauma.
Hip x-ray with displaced transverse fracture of left femoral neck.
s/p left hip hemiarthroplasty postop day 2.
Weightbearing as tolerated left lower extremity with posterior hip precautions.
DVT ppx with Lovenox SQ daily for additional 27 days per Ortho.
PT OT post op recc SNF.
Pain control.
Pt eating well post op, DC further IVF
Follow-up outpatient 2 weeks for repeat evaluation with planned removal of patrick
Urinary retention
Volume overloaded with bilateral crackles on lung bases.
Increasing dry weight 78.6kg on admission currently 94.71 kg
No urine output, needs straight cath.
Monitor I/O
Senile dementia
Continue donepezil and memantine
Quetiapine as needed for acute agitation
due to behavioral disturbance, hand mitts placed, cont to monitor mood and consider DC hand mitts
Acute hypoxic respiratory insufficiency
Placed on 2L NC, wean O2 as tolerated, pt not on home O2
DVT Prophylaxis:�Lovenox SQ per Ortho.
Son at bedside
Anticipated Discharge: Within 24 hours
Subjective/Interval History
-
Date of Service: October 30, 2023
Objective Data
-
Labs:
Laboratory Results
10/30/23
04:12
WBC 7.6
Hgb 11.4 L
Hct 34.4 L
Plt Count 183
Sodium 137
Potassium 4.3
Chloride 103
Carbon Dioxide 28
BUN 35 H
Creatinine 1.0
Glucose 99
Calcium 7.9 L
Vital Signs:
Vital Signs
Temp Pulse Resp BP Pulse Ox
97.9 F 112 20 131/85 94
10/30/23 07:55 10/30/23 07:55 10/30/23 07:55 10/30/23 07:55 10/30/23 11:11
I&O
10/29/23 10/30/23 10/31/23
06:59 06:59 06:59
Intake Total 800 / 800 2159
Output Total 900 / 900
Balance -100 / -100 2159
Review of Systems
-
Unable to obtain full review of systems at this time due to: Dementia
History Source: Family
Respiratory: Reports No Symptoms
Abdomen/GI: Reports No Symptoms
Physical Exam
-
General: Well Developed and Well Nourished
HEENT: Oxygen (2L NC)
Respiratory: Clear to Auscultation and Non Labored Respirations; Negative Accessory Resp Muscle Use
Cardiac: Regular Rhythm and S1/S2
GI: Soft and Nontender
Skin: Warm and Dry
Neuro: Awake; Negative AO x 3
Psych: Calm and Apparent Dementia
Data Reviewed
-
Diagnostic Radiology: Image personally visualized and interpreted, Report Reviewed by me and Discussed with Physician
Labs: Labs Reviewed by me and Discussed with Physician
Old Records: Reviewed
[2023-10-30] MEDS: LASIX 20 MG IV (14:12)
[2023-10-30] MEDS: DULCOLAX 10 MG RECTAL (14:12)
--- NOTE | 2023-10-30 14:12 | CM ---
Addendum entered by Bhumi Stapleton 10/30/23 14:32:
Spoke with bedside. Discussed d/c plan.
Patient on medsitter and will need to be off x 24 hours prior to skilled rehab.
Nursing updated.
Spoke with Ricardo from [facility] call for bed availability tomorrow.
Spouse also agreeable to [facility].
Original Note:
Plan Skilled rehab when medically stable and bed available.
No Auth required.
--- NOTE | 2023-10-30 15:15 | PTCARENOTE ---
Video monitoring discontinued.
[2023-10-30 15:55] VITALS: BP 130/83
[2023-10-30] MEDS: NAMENDA 10 MG PO (18:33)
[2023-10-30] MEDS: CARDURA 4 MG PO (21:52)
[2023-10-30 23:05] VITALS: BP 104/82
[2023-10-31] MEDS: TYLENOL PO (00:29)
[2023-10-31] MEDS: DUONEB 3 ML INH (02:12)
[2023-10-31] MEDS: ROXICODONE 5 MG PO ×3 (03:50→20:45)
[2023-10-31 06:00] VITALS: BMI 29.6
--- NOTE | 2023-10-31 07:15 | PTCARENOTE ---
pt dx: L hip Oren on 10/28, it is red, edematous and warm to touch it appears cellulitic, I marked the reddened area, since then the red area has surpassed the marking, Dr made aware, will report on rounds.
--- NOTE | 2023-10-31 07:38 | W.PN.ORTHO ---
Today's Communication / Plan
-
83-year-old male history of dementia now postop day 3 status post left hip hemiarthroplasty for displaced femoral neck fracture
Weightbearing as tolerated left lower extremity
PT OT
DVT prophylaxis: Lovenox x 28 days postop
Pain control
Posterior hip precautions
Plan to follow-up outpatient 2 weeks postop for repeat evaluation plan removal of patrick
Continue to monitor erythematous skin changes. Will reach out to primary team about perhaps initiating IV antibiotics for the next 24 hours while patient is waiting placement.
Subjective
.
.:
Patient in bed with family at bedside. Unable to participate in any meaningful history taking. Per nursing patient was incontinent of bowel and bladder overnight. Overnight nursing was concerned about some erythematous skin changes over the left
thigh.
Vital Signs and Labs
.
Vital Signs and Labs:
Lab Results
10/30/23 04:12
10/30/23 04:12
Temp Pulse Resp BP Pulse Ox
98.6 F 106 18 104/82 95
10/30/23 23:05 10/31/23 02:19 10/31/23 02:19 10/30/23 23:05 10/31/23 02:19
PT 14.4 Sec (11.4-14.6) 10/26/23 22:29
INR 1.12 10/26/23 22:29
Physical Exam
-
Musculoskeletal left lower extremity
Surgical incision visualized, there is no direct shaniqua-incisional erythema drainage or induration
There is area of some erythematous skin changes distal to the incision over the lateral thigh
Patient's mental status precludes detailed motor or sensory examination although he is spontaneously moving toes
Brisk cap refill distally
Leg lengths approximately equal
[2023-10-31 07:52] VITALS: BP 119/81
[2023-10-31] MEDS: ANCEF 10 IV ×2 (08:12→18:04)
[2023-10-31] MEDS: ZOLOFT 50 MG PO (08:13)
[2023-10-31] MEDS: ARICEPT 10 MG PO (08:13)
[2023-10-31] MEDS: COLACE PO ×2 (08:13→20:22)
[2023-10-31] MEDS: TYLENOL 1000 MG PO ×3 (08:13→22:51)
[2023-10-31] MEDS: LOVENOX 40 MG SC (08:13)
[2023-10-31] MEDS: SENOKOT PO ×2 (08:15→20:22)
--- NOTE | 2023-10-31 09:37 | W.PN.HOSP.TC ---
Addendum entered and electronically signed by Jay Becerra MD 10/31/23 15:00:
Patient seen and examined
Discussed with resident
Discussed with nursing
Impression/plan:
Status post left t hip fracture and hemiarthroplasty postoperative day #3
Suture line with mild erythema and no induration or fluctuance. Less likely bacterial cellulitis, suspect pressure injury. Will give IV Ancef for another 24 to 48 hours monitor closely
Offload pressure
Acute urine retention improved with management of constipation
Continue bladder scan.
Mild volume overload with no evidence of CHF
Status post single dose of Lasix on 10/30
Currently on nasal cannula oxygen at 2 L
Currently exam with decrease of breath sounds bilaterally at the bases suspected atelectasis
Monitor closely increase activity
Incentive spirometry if cooperative.
CODE STATUS confirmed with patient's : DNR
Original Note:
Today's Communication/Plan
-
S/p right hip fracture/hemiarthroplasty day 3.
Erythematous skin changes around surgical wound site, possibly surgical wound site infection.
Improving with Ancef 2 g. Will repeat another IV push tomorrow at a.m.
Volume overloaded with peripheral edema and bibasilar crackles left >right on auscultation.
Lasix 20 mg IV.
Consider chest x-ray rule out pulmonary edema.
Continue bladder scan with intermittent straight cath
Monitor I&O.
On 2 L NC oxygen with no apparent respiratory distress.
Wean off oxygen as tolerated.
Continue Lovenox for additional 26 days.
Weightbearing as tolerated left lower extremity with posterior hip precautions.
Pain control
Continue PT/OT.
Follow-up outpatient 2 weeks for repeat evaluation with planned removal of patrick
Assessment / Plan
Assessment / Plan
Impression
Patient's family reports left hip pain due to a fall at home
Possible surgical wound infection
Senile dementia
Mild dehydration
Plan
Patient with reported mechanical fall at home with possible left hip fracture.
Head CT with no evidence of intracranial abnormalities or head trauma.
Hip x-ray with displaced transverse fracture of left femoral neck.
s/p left hip hemiarthroplasty postop day 3.
Weightbearing as tolerated left lower extremity with posterior hip precautions.
DVT ppx with Lovenox SQ daily for additional 27 days per Ortho.
PT OT post op recc SNF.
Pain control.
Pt eating well post op, DC further IVF
Follow-up outpatient 2 weeks for repeat evaluation with planned removal of patrick
Possible surgical wound infection
-Ancef 2 g administered as slow IV push over 5 minutes.
Urinary retention
Volume overloaded with bilateral crackles on lung bases.
Increasing dry weight 78.6kg on admission currently 94.71 kg
No urine output, needs straight cath.
Monitor I/O
Senile dementia
Continue donepezil and memantine
Quetiapine as needed for acute agitation
due to behavioral disturbance, hand mitts placed, cont to monitor mood and consider DC hand mitts
Acute hypoxic respiratory insufficiency
Placed on 2L NC, wean O2 as tolerated, pt not on home O2
DVT Prophylaxis:�Lovenox SQ per Ortho.
Son at bedside
Anticipated Discharge: Within 24 hours
Subjective/Interval History
-
Date of Service: October 31, 2023
Objective Data
-
Vital Signs:
Vital Signs
Temp Pulse Resp BP Pulse Ox
98.1 F 106 16 119/81 93
10/31/23 07:52 10/31/23 07:52 10/31/23 07:52 10/31/23 07:52 10/31/23 07:52
I&O
10/30/23 10/31/23 11/01/23
06:59 06:59 06:59
Intake Total 2160 / 2160 480 / 480
Output Total 1100 / 1100
Balance 2160 / 2160 -620 / -620
Review of Systems
-
Unable to obtain full review of systems at this time due to: Dementia
History Source: Family
All other systems: Not reviewed unless documented
Respiratory: Reports No Symptoms
Abdomen/GI: Reports No Symptoms
Skin: Reports Rash (Erythema around the surgical site)
Physical Exam
-
General: Well Developed and Well Nourished
HEENT: Oxygen (2L NC)
Respiratory: Clear to Auscultation and Non Labored Respirations; Negative Accessory Resp Muscle Use
Cardiac: Regular Rhythm and S1/S2
GI: Soft and Nontender
Skin: Warm, Dry and Rash (Erythema of the surgical site)
Neuro: Awake; Negative AO x 3
Psych: Calm and Apparent Dementia
Data Reviewed
-
Diagnostic Radiology: Image personally visualized and interpreted, Report Reviewed by me and Discussed with Physician
Labs: Labs Reviewed by me and Discussed with Physician
Old Records: Reviewed
--- NOTE | 2023-10-31 11:00 | CM ---
Addendum entered by Bhumi Stapleton 10/31/23 11:10:
TT to
Spoke with Kristin JACKSON aware patient will be here an additional 24 hours.
Original Note:
Per nursing patient started on IV anbx.
TC to [facility] await [facility] re bed availability.
No auth required.
Plan: skilled rehab when medically stable and bed avialable, will require ambulance transport.
[2023-10-31 14:50] VITALS: BP 125/81
[2023-10-31 15:39] VITALS: BP 125/81
[2023-10-31 16:00] VITALS: BP 125/81; PULSE 95; O2SAT 92
[2023-10-31] MEDS: NAMENDA 10 MG PO (18:04)
[2023-10-31] MEDS: CARDURA 4 MG PO (22:51)
[2023-10-31 23:00] VITALS: BP 115/68
[2023-11-01] MEDS: ANCEF 10 IV (00:37)
[2023-11-01] MEDS: FLUSH (NSS) 2 FLUSH IV (00:38)
[2023-11-01 05:03] VITALS: BMI 29.7
[2023-11-01 08:12] VITALS: BP 143/83
--- NOTE | 2023-11-01 08:47 | W.PN.HOSP.TC ---
Addendum entered and electronically signed by Jay Becerra MD 11/01/23 16:07:
Patient seen and examined
Discussed with resident
Discussed with nursing
Discussed with patient's at the bedside
Left hip hemiarthroplasty
Suture line with mild erythema but no evidence of fluctuance or bacterial infection.
Continue IV antibiotic for another 24 hours
Continue wound care
Continue physical therapy
DVT prophylaxis with Lovenox.
Hypoxia.
Suspect secondary atelectasis.
No evidence for respiratory distress
Pulse ox high 80s mid 90s on 2 L nasal cannula oxygen
Increase activity per
Given dementia and not able to be compliant with incentive spirometry.
Original Note:
Today's Communication/Plan
-
S/p right hip fracture/hemiarthroplasty day 4.�
Erythematous skin changes around suture line with no warmth, induration or fluctuance. Suspect pressure injury, less likely surgical wound site infection or cellulitis.
Improving with Ancef 2 g. Will give IV Ancef for another 24 hours.
If blood pressure.
Improved bilateral breath sounds.
Status post single IV Lasix 10/30.
Patient disaturated to the high 80's overnight while on room air, currently back on 2 L oxygen NC.
Wean off oxygen as tolerated.
Monitor closely.
Incentive spirometry if he tolerates.
Continue Lovenox for additional 25 days.
Increase weightbearing activities as tolerated, with posterior hip precautions.
Pain control
Continue PT/OT.
Follow-up outpatient 2 weeks for repeat evaluation with planned removal of patrick
Assessment / Plan
Assessment / Plan
Impression
Patient's family reports left hip pain due to a fall at home
Possible surgical wound infection
Senile dementia
Mild dehydration
Plan
Patient with reported mechanical fall at home with possible left hip fracture.
Head CT with no evidence of intracranial abnormalities or head trauma.
Hip x-ray with displaced transverse fracture of left femoral neck.
s/p left hip hemiarthroplasty postop day 4.
Increase weightbearing activities as tolerated with posterior hip precautions.
DVT ppx with Lovenox SQ daily for additional 25 days per Ortho.
PT OT post op recc SNF.
Pain control.
Follow-up outpatient 2 weeks for repeat evaluation with planned removal of patrick
Suture line erythema with no fluctuance or induration.
Resolved. Less likely bacterial cellulitis, suspect pressure injury.
Discontinue Ancef monitor closely.
Offload pressure.
Acute urinary retention
Improved with management of constipation.
Continue bladder scan
Senile dementia
Continue donepezil and memantine
Quetiapine as needed for acute agitation
due to behavioral disturbance, hand mitts placed, cont to monitor mood and consider DC hand mitts
Acute hypoxic respiratory insufficiency
Improved bilateral decreased breath sounds.
Status post single dose of Lasix on 10/30.
No evidence of CHF, suspect atelectasis.
Patient disaturated to the high 80's overnight while on room air, currently back on 2 L oxygen NC.
Wean O2 as tolerated, pt not on home O2
Incentive spirometry if he tolerates.
DVT Prophylaxis:�Lovenox SQ per Ortho.
Son at bedside
Anticipated Discharge: Within 24 hours
Subjective/Interval History
-
Date of Service: November 01, 2023
Objective Data
-
Vital Signs:
Vital Signs
Temp Pulse Resp BP Pulse Ox
98.8 F 102 18 143/83 96
11/01/23 08:12 11/01/23 08:12 11/01/23 08:12 11/01/23 08:12 11/01/23 08:12
I&O
10/31/23 11/01/23 11/02/23
06:59 06:59 06:59
Intake Total 480 / 480 480 / 480
Output Total 1100 / 1100
Balance -620 / -620 480 / 480
Review of Systems
-
Unable to obtain full review of systems at this time due to: Dementia
History Source: Family
All other systems: Not reviewed unless documented
Respiratory: Reports No Symptoms
Abdomen/GI: Reports No Symptoms
Skin: Reports Rash (Erythema around the surgical site)
Physical Exam
-
General: Well Developed and Well Nourished
HEENT: Oxygen (2L NC)
Respiratory: Clear to Auscultation and Non Labored Respirations; Negative Accessory Resp Muscle Use
Cardiac: Regular Rhythm and S1/S2
GI: Soft and Nontender
Skin: Warm, Dry and Rash (Erythema of the surgical site)
Neuro: Awake; Negative AO x 3
Psych: Calm and Apparent Dementia
Data Reviewed
-
Diagnostic Radiology: Image personally visualized and interpreted, Report Reviewed by me and Discussed with Physician
Labs: Labs Reviewed by me and Discussed with Physician
Old Records: Reviewed
[2023-11-01] MEDS: TYLENOL 1000 MG PO ×3 (08:53→21:03)
[2023-11-01] MEDS: ZOLOFT 50 MG PO (08:53)
[2023-11-01] MEDS: COLACE 100 MG PO (08:54)
[2023-11-01] MEDS: ARICEPT 10 MG PO (08:54)
[2023-11-01] MEDS: LOVENOX 40 MG SC (08:54)
[2023-11-01] MEDS: SENOKOT 8.59999999999999964 MG PO (08:54)
[2023-11-01 10:20] VITALS: BP 126/82; PULSE 82; O2SAT 96
[2023-11-01 10:43] VITALS: BP 126/82; PULSE 84; O2SAT 95
--- NOTE | 2023-11-01 10:45 | CM ---
Addendum entered by Keisha Montejo RN 11/01/23 13:38:
CM spoke with Kristin Licensed Occupational Therapy Assistant at [facility]. [facility] can accept the patient tomorrow. Reviewed the chart notes and spoke with the patient's spouse at the bedside. Spouse, attending and RN updated. CM continues to be available to patient/family
and is monitoring medical plan for needs at discharge.
Plan: Discharge to [facility] . Medical necessity and transport forms on the chart.
Original Note:
IMM signed and placed on the chart.
[2023-11-01 16:08] VITALS: BP 123/73
[2023-11-01] MEDS: NAMENDA 10 MG PO (17:30)
[2023-11-01] MEDS: SENOKOT PO (20:12)
[2023-11-01] MEDS: COLACE PO (20:12)
--- NOTE | 2023-11-01 20:14 | W.PN.UPDATE ---
Update Note
Progress Note Update
Did see patient today. Unable to comply with history taking or exam but was at bedside.
Mild erythematous skin changes appear improved to me. Low index of suspicion for infectious etiology.
Discussed with primary team and agree to continue IV ancef however, for anther 24hrs.
Follow up outpatient 2-3 weeks post op as previously indicated. Please reach out with questions or concerns.
[2023-11-01] MEDS: CARDURA 4 MG PO (21:02)
[2023-11-01] MEDS: SEROQUEL 12.5 MG PO (21:03)
[2023-11-01 22:45] VITALS: BP 135/74
[2023-11-02 06:00] VITALS: BMI 29.5
[2023-11-02 07:08] VITALS: BP 124/85
[2023-11-02] MEDS: LOVENOX 40 MG SC (09:01)
[2023-11-02] MEDS: COLACE PO (09:02)
[2023-11-02] MEDS: TYLENOL 1000 MG PO ×2 (09:02→15:57)
[2023-11-02] MEDS: ZOLOFT 50 MG PO (09:02)
[2023-11-02] MEDS: ARICEPT 10 MG PO (09:02)
[2023-11-02] MEDS: SENOKOT 8.59999999999999964 MG PO (09:02)
--- NOTE | 2023-11-02 09:18 | CM ---
Reviewed the chart notes. Plan is for patient to discharged to [facility] when medically stable. CM continues to be available to patient/family and is monitoring medical plan for needs at discharge.
Plan: Discharge to [facility] when medically stable.
Call report to: [phone]
Fax report to: [phone]
Medical necessity and transport forms on chart.
--- NOTE | 2023-11-02 12:09 | W.DS.TRANS ---
DC Summary - Survey Compiler
-
Discharge Instructions:
Discharge Diagnosis/Procedures Hip fracture
Left hemiarthroplasty.
Dementia
Diet Regular
Instructions:
Stand-Alone Forms:
Changes to Home Medications: Yes
Discharge Medications:
DC Medications w/original date entered in [employer]
donepezil 10 mg tablet (Aricept) 10 mg PO DAILY Mental Health/Anxiety 10/27/23
doxazosin 4 mg tablet 4 mg PO HS Blood Pressure 10/27/23
memantine 10 mg tablet 10 mg PO QPM Mental Health/Anxiety 10/27/23
sertraline 50 mg tablet 50 mg PO DAILY Mental Health/Anxiety 10/27/23
acetaminophen 325 mg tablet 650 mg PO Q4HPRN PRN headache, temp >101F #60 tabs 11/02/23
bisacodyl 10 mg rectal suppository 10 mg AR DAILYPRN PRN constipation #30 ea 11/02/23
docusate sodium 100 mg capsule 100 mg PO BID #60 caps 11/02/23
enoxaparin 40 mg/0.4 mL subcutaneous syringe 40 mg (0.4 mL) SC DAILY #22 mL 11/02/23
Home Medication Changes
Lovenox for 28 days total for DVT prophylaxis
Bowel regimen
Pending Results: No
[2023-11-02 15:26] VITALS: BP 108/66
== END 2023-11-02 18:14 | DRG 522 ==
LOC: 2 SOUTH 00:45
PROVIDERS: Internal Medicine; ADMITTING PHYSICIAN Hospitalist; ATTENDING PHYSICIAN Internal Medicine; CONSULT PHYSICIAN Orthopaedic Surgery; EMERGENCY PHYSICIAN Student in an Organized Health Care Education/Training Program; FAMILY PHYSICIAN Family Medicine
PROC: 0SRS0J9 Replacement of Left Hip Joint, Femoral Surface with Synthetic Substitute, Cemented, Open Approach (ICD-10-PCS; 2023-10-28)
DX: M80.052A Age-related osteoporosis with current pathological fracture, left femur, initial encounter for fracture (principal); J98.11 Atelectasis; L03.116 Cellulitis of left lower limb; D62 Acute posthemorrhagic anemia; T81.41XA Infection following a procedure, superficial incisional surgical site, initial encounter; G30.9 Alzheimer's disease, unspecified; F02.80 Dementia in other diseases classified elsewhere, unspecified severity, without behavioral disturbance, psychotic disturbance, mood disturbance, and anxiety; N40.0 Benign prostatic hyperplasia without lower urinary tract symptoms; R06.89 Other abnormalities of breathing; R09.02 Hypoxemia; K59.00 Constipation, unspecified; R33.9 Retention of urine, unspecified; L89.151 Pressure ulcer of sacral region, stage 1; E86.0 Dehydration; D64.9 Anemia, unspecified; E87.70 Fluid overload, unspecified; R15.9 Full incontinence of feces; R32 Unspecified urinary incontinence; W07.XXXA Fall from chair, initial encounter; Y93.9 Activity, unspecified; Y92.009 Unspecified place in unspecified non-institutional (private) residence as the place of occurrence of the external cause; Z91.81 History of falling; Z66 Do not resuscitate
CPT/HCPCS: 70450; 73502; 80048; 80053; 81003; 85025; 85027; 85610; 85730; 93005; 94640; 97110; 97116; 97162; 97167; 97530; 97535; 99285; C1713; C1776

== ENCOUNTER → 2023-11-07 12:13 | Outpatient (REF) | payer OTHER, MEDICARE, BC, SELFPAY ==
[2023-11-07 12:41] LABS: % Basophils 0.8 % (0-2); % Eosinophils 5.8 % (0-6); % Lymphocytes 17.3 % (20.5-51.1); % Monocytes 10.9 % (1.7-9.3); % Neutrophils 64.2 % (42.2-75.2); Absolute Basophils 0.1 10^3/uL (0-0.2); Absolute Eosinophils 0.4 10^3/uL (0-0.7); Absolute Immature Granulocytes 0.1 10^3/uL (0-0.05); Absolute Lymphocytes 1.1 10^3/uL (1.2-3.4); Absolute Monocytes 0.7 10^3/uL (0.1-0.6); Hematocrit 30.5 % (39.0-52.0); Hemoglobin 10.1 g/dL (13.0-18.0); Mean Corp Hgb Conc. 33.1 g/dL (33.0-37.0); Mean Corpuscular Volume 93.6 fL (80.0-94.0); Mean Platelet Volume 10.1 fL (7.4-10.4); Nucleated Red Blood Cells % 0 % (-); Platelet Count 383 10^3/uL (130-400); Red Blood Cell Count 3.26 10^6/uL (4.70-6.10); Red Cell Dist. Width 13.8 % (11.5-14.5); White Blood Cell Count 6.3 10^3/uL (4.8-10.8)
[2023-11-07 13:09] LABS: ALT (SGPT) 42 U/L (0-50); AST (SGOT) 49 U/L (17-59); Albumin 2.7 g/dl (3.5-5.0); Alkaline Phosphatase 111 U/L (38-126); Blood Urea Nitrogen 20 mg/dl (9-20); Calcium 7.5 mg/dl (8.4-10.2); Carbon Dioxide 29 mmol/L (22-30); Chloride 105 mmol/L (98-107); Glucose 88 mg/dl (70-99); Magnesium 2.3 mg/dl (1.6-2.3); Potassium 4.2 mmol/L (3.5-5.1); Sodium 136 mmol/L (135-145); Total Bilirubin 0.7 mg/dl (0.2-1.3); Total Protein 5.1 g/dl (6.3-8.2); eGFR > 60.00
== END ==
LOC: OLABN 12:13
PROVIDERS: ATTENDING PHYSICIAN Student in an Organized Health Care Education/Training Program
DX: F03.918 Unspecified dementia, unspecified severity, with other behavioral disturbance (principal); Z13.228 Encounter for screening for other metabolic disorders; E61.2 Magnesium deficiency; Z13.29 Encounter for screening for other suspected endocrine disorder; F03.90 Unspecified dementia, unspecified severity, without behavioral disturbance, psychotic disturbance, mood disturbance, and anxiety
CPT/HCPCS: 36415; 80053; 83735; 84443; 85025

== ENCOUNTER → 2023-12-06 11:36 | Outpatient (REF) | payer OTHER, MEDICARE, BC, SELFPAY ==
[2023-12-06 12:35] LABS: Blood Urea Nitrogen 19 mg/dl (9-20); Calcium 7.8 mg/dl (8.4-10.2); Carbon Dioxide 25 mmol/L (22-30); Chloride 107 mmol/L (98-107); Glucose 80 mg/dl (70-99); Potassium 4.1 mmol/L (3.5-5.1); Sodium 138 mmol/L (135-145); eGFR > 60.00
== END ==
LOC: OLABPATH 11:36
PROVIDERS: ATTENDING PHYSICIAN Student in an Organized Health Care Education/Training Program
DX: E83.51 Hypocalcemia (principal)
CPT/HCPCS: 36415; 80048

== ENCOUNTER 2023-12-27 00:19 | Inpatient (IN) | payer MEDICARE, BC, SELFPAY ==
[2023-12-26 22:34] VITALS: BP 136/74
--- NOTE | 2023-12-26 22:36 | ED.GENMED ---
History of Present Illness
General
Chief Complaint: Fall
Source: patient and ambulance crew
Exam Limitations: altered mental status and dementia
Time Seen by Provider: 12/26/23 22:29
History of Present Illness
History of Present Illness:
83-year-old male with unwitnessed fall presents with right hip pain with a shortened and externally rotated hip. Patient does have a history of Alzheimer's dementia. According to medics, he is a DNR/DNH.
Vital signs are stable. Patient not hypoxic
Nursing note reviewed. I agree with nursing documentation up to this point in time.
Home Meds and allergies reviewed.
NUMBER AND COMPLEXITY OF PROBLEMS ADDRESSED AT THE ENCOUNTER
� Chronic conditions affecting care: Dementia, hypertension
� Acute Exacerbation and/or Progression of Chronic Illness: This is an acute problem
� Differential Diagnosis includes: Hip pain, hip strain, dislocated hip, most likely is fractured hip
AMOUNT AND/OR COMPLEXITY OF DATA TO BE REVIEWED AND ANALYZED
I performed an independent evaluation of the following and my interpretation is:
EKG: EKG shows normal sinus rhythm rate [address] and T wave abnormalities. When compared with previous EKG dated October 27, 2023, no obvious noted.
CT:
X-rays: right hip fx
Ultrasound:
Laboratory Studies:
Other:
Review of other/old records:
Clinical information was obtained by an independent historian:
Prescriptions/Medications Considered but not given:
Further testing considered but not performed:
RISK OF COMPLICATIONS AND/OR MORBIDITY OR MORTALITY OF PATIENT MANAGEMENT
Social determinants of health affecting care: Good Social Support
Discussion with other providers:
Escalation of care including admission/observation vs risk of discharge considered:
CRITICAL CARE NOTE: Not applicable
Total Time (exclusive of procedures):
Update:
Past History
Past History
ED Past Medical History: Other (Dementia)
ED Past Surgical History: Negative Orthopedic
Patient has exhibited threatening behavior?: No
Social History
Tobacco: Non-smoker
Alcohol: None
Drug: None
Personal:
Living: with family
Employment: Retired
Review of Systems
Review of Systems
Unable to obtain full review of systems at this time due to: dementia
All Other Systems: Not applicable
Constitutional: Reports no symptoms
EENT: Reports no symptoms
Respiratory: Reports no symptoms
Cardiac: Reports no symptoms
ABD/GI: Reports no symptoms
: Reports no symptoms
Musculoskeletal: Reports joint pain, muscle pain and muscle stiffness
Skin: Reports no symptoms
Neurological: Reports no symptoms
Endocrine: Reports no symptoms
Hematologic/Lymphatic: Reports no symptoms
Psychiatric: Reports no symptoms
Phy Exam
General Physical Exam
General Presentation: well appearing and no apparent distress
General Skin: warm and dry
General Habitus: normal
General Mental: alert
General Hydration: appears well hydrated
ENT Exam
ENT Exam: EOMI, pharynx normal, neck supple and normocephalic
Eye Exam
Eye Exam: PERRL, cornea clear and conjunctiva normal
Cardiovascular Exam
Cardiovascular Exam: regular rate/rhythm, no edema, no murmur and normal peripheral pulses
Pulmonary Exam
Pulmonary Exam: lungs clear, no respiratory distress, no rales, no crackles, no rhonchi, no stridor, no wheezing and no cough
Gastrointestinal Exam
Gastrointestinal Exam: normal bowel sounds, non tender, soft, no organomegaly, no pulsatile mass and non distended
Neurological Exam
Neurological Exam: confused and other (Baseline)
Musculoskeletal Exam
Musculoskeletal Exam: joint swelling, neuro vasc intact and other (Right leg is externally rotated and shortened)
Skin Exam
Skin Exam: normal color, warm/dry, no rash and no petechia
Psychiatric Exam
Psychiatric Exam: normal mood/affect
Course
Orders/Labs/Results
Orders:
Orders
12/26/23 22:29
Hip, Right 2-3 Views [CR Hip - RT w/wo Pel 2-3 Vw*] Urgent
Comment:
Reason For Exam: fall, obvious deformity
Include a pelvis x-ray?: Yes
12/26/23 22:30
CT Head W/o Iv Contrast Urgent
Comment:
Reason For Exam: fall
12/26/23 22:35
Morphine Sulfate 4 mg IV NOW STA
Ondansetron Injectable [Zofran] 4 mg IV NOW STA
12/26/23 22:36
Electrocardiogram (*1) Urgent
Reason for Study: QTc Monitoring
EKG- Treatment ONCE
12/26/23 22:55
PTT Urgent
Prothrombin Time Urgent
12/26/23 22:56
Complete Blood Count/With Diff Urgent
Comprehensive Metabolic Panel Urgent
12/26/23 23:33
Cervical Spine wo Contrast CT [CT Cervical Spine W/o Iv Contr] Urgent
Comment:
Reason For Exam: fall
Pelvis wo Contrast CT [CT Pelvis W/o Iv Contrast] Urgent
Comment:
Reason For Exam: fall
12/27/23 Breakfast
NPO
Allow oral meds: Yes
Allow clear liquids: Sips of Clears
NPO with Ice Chips: No
Abnormal Lab Results
12/26/23 12/26/23
22:55 22:56
RBC 3.83 L 10^6/uL
(4.70-6.10)
Hgb 11.7 L g/dL
(13.0-18.0)
Hct 34.9 L %
(39.0-52.0)
Abs Immat Gran (auto) 0.1 H 10^3/uL
(0-0.05)
Immature Gran % 1.4 H %
(0-0.5)
PT 14.7 H Sec
(11.4-14.6)
BUN 24 H mg/dl
(9-20)
Glucose 108 H mg/dl
(70-99)
Alkaline Phosphatase 132 H U/L
(38-126)
12/26/23 22:56
12/26/23 22:56
Vital Signs
Initial and Last Documented VS:
Initial Vital Signs
Temp Pulse Resp BP Pulse Ox
97.7 F 80 16 136/74 91
12/26/23 22:34 12/26/23 22:34 12/26/23 22:34 12/26/23 22:34 12/26/23 22:34
Last Documented Vital Signs
Temp Pulse Resp BP Pulse Ox
97.7 F 80 16 136/74 95
12/26/23 22:34 12/26/23 22:34 12/26/23 22:34 12/26/23 22:34 12/26/23 23:00
*Critical Care Note
Total Time (30-74mins, 75-104mins- exclusive of procedures): Not Applicable
Update Note
Update Note:
Spoke with Sophia who is aware of patient's hip fracture.
I [place] texted Dr. Neumann, orthopedics on-call. Patient originally had left hip replacement surgery in October by Dr. Forbes but no one was on-call for his group [facility].
ED Attending Note
-
Portions of this chart may have been created with voice recognition software.� Occasional wrong word or��sound alike� substitutions may have occurred due to the inherent limitations of voice recognition software.
Discharge Plan
Departure
Patient Disposition: Admit
Date of Disposition: 12/26/23
Time of Disposition: 23:53
Admit to: Med/Surg
Presentation/result/management discussed w/ accepting MD/DO: Hospitalist
Condition: Fair
Discharge Problem:
Closed fracture of right hip, Dementia
Prescriptions:
No Action
donepezil [Aricept] 10 mg Tablet
10 mg PO DAILY
doxazosin 4 mg Tablet
4 mg PO QPM
sertraline 50 mg Tablet
50 mg PO DAILY
memantine 10 mg Tablet
10 mg PO QPM
ipratropium-albuterol 0.5 mg-3 mg(2.5 mg base)/3 mL Solution For Nebulization
3 ml INHALATION R Q6 PRN (Reason: wheezing)
trazodone 50 mg Tablet
25 mg PO HS
sennosides-docusate sodium [Senna-S] 8.6-50 mg Tablet
2 tab-cap PO DAILY
acetaminophen 500 mg Tablet
1,000 mg PO Q12
magnesium hydroxide [Milk of Magnesia] 400 mg/5 mL Suspension
30 ml PO HS PRN (Reason: constipation)
acetaminophen 325 mg tablet
650 mg PO DAILY PRN (Reason: fever>100.4)
bisacodyl 10 mg suppository
10 mg MN DAILY PRN (Reason: if mom/lactulose is ineffective)
Referrals:
Irineo Franklin DO [Family Provider] -
Interventions
Interventions:
*Risk Screen - Suicide Last Done: 12/26/23 22:34
*General Assessment Last Done: 12/26/23 22:34
*Neglect/Abuse Screening Last Done: 12/26/23 22:34
ED- Fall Risk Assessment Last Done: 12/26/23 22:34
*ED COVID-19 Vaccine History Last Done: 12/26/23 22:34
ED-Musculoskeletal Assessment Last Done: 12/26/23 23:00
ED- Neurological Assessment Last Done: 12/26/23 23:00
ED-Skin Assessment Last Done: 12/26/23 23:00
Discharge Date and Time
Print Language: ICELANDIC
[2023-12-26 22:42] VITALS: BP 126/76
[2023-12-26 23:00] VITALS: BP 131/71; BMI 30.2
[2023-12-26] MEDS: ZOFRAN 4 MG IV (23:00)
[2023-12-26] MEDS: MORPHINE SULFATE 4 MG IV (23:00)
[2023-12-26 23:01] LABS: % Basophils 0.6 % (0-2); % Eosinophils 3.6 % (0-6); % Immature Granulocytes 1.4 % (0-0.5); % Lymphocytes 35.7 % (20.5-51.1); % Monocytes 7.9 % (1.7-9.3); % Neutrophils 50.8 % (42.2-75.2); Absolute Eosinophils 0.2 10^3/uL (0-0.7); Absolute Immature Granulocytes 0.1 10^3/uL (0-0.05); Absolute Lymphocytes 2.3 10^3/uL (1.2-3.4); Absolute Monocytes 0.5 10^3/uL (0.1-0.6); Absolute Neutrophils 3.2 10^3/uL (1.4-6.5); Hematocrit 34.9 % (39.0-52.0); Hemoglobin 11.7 g/dL (13.0-18.0); Mean Corp Hgb Conc. 33.5 g/dL (33.0-37.0); Mean Corpuscular Hgb 30.5 pg (27.0-31.0); Mean Corpuscular Volume 91.1 fL (80.0-94.0); Nucleated Red Blood Cells % 0 % (-); Platelet Count 299 10^3/uL (130-400); Red Blood Cell Count 3.83 10^6/uL (4.70-6.10); Red Cell Dist. Width 14.5 % (11.5-14.5); White Blood Cell Count 6.4 10^3/uL (4.8-10.8)
[2023-12-26 23:13] LABS: ALT (SGPT) 19 U/L (0-50); AST (SGOT) 27 U/L (17-59); Albumin 3.7 g/dl (3.5-5.0); Alkaline Phosphatase 132 U/L (38-126); Blood Urea Nitrogen 24 mg/dl (9-20); Calcium 8.6 mg/dl (8.4-10.2); Carbon Dioxide 29 mmol/L (22-30); Chloride 105 mmol/L (98-107); Estimated Creatinine Clearance 67 ml/min; Glucose 108 mg/dl (70-99); Potassium 4.2 mmol/L (3.5-5.1); Sodium 136 mmol/L (135-145); Total Bilirubin 0.4 mg/dl (0.2-1.3); Total Protein 6.6 g/dl (6.3-8.2); eGFR > 60.00
[2023-12-26 23:16] LABS: INR 1.17; PT 14.7 Sec (11.4-14.6)
--- NOTE | 2023-12-26 23:52 | HPS.HSE ---
Addendum entered and electronically signed by Ruth Lal DO 12/27/23 00:36:
Acute Hypoxic Resp Failure
- EKG NSR @ 83bpm, Anteriorseptal infarct age indeterminate, Q-waves III-AVF,�TWI V4-V5,�QTC 444ms.�unchanged from prior
- Will obtain Trop and BNP for completeness. No recent TTE on file
Original Note:
Family Physician
-
Family Physician: Irineo Franklin, DO
Chief Complaint
-
S/P Fall with Right Hip Pain
History of Present Illness
83yo M with PMH Senile Dementia, HTN, Urinary Retention/BPH, Chronic Constipation presents to ER s/p Fall from [facility]. Of note pt had a fall in October and underwent Left Hip Hemiarthroplasty by Dr. Dumont on 10/28. As per he
fell out of bed but fall was unwitnessed. Pt 10/06 dementia is unable to give further details. Complains only of mild pain in left hip. ROS otherwise unattainable
does endorse concern regarding recurrent falls at [facility]. She reports financial hardships. She confirms his DNR/DNI status. At baseline is he is AAOx1 and ambulates with a wheelchair. She reports him using 2LNC 'as needed' in the
halfway prior to transfer today.
ER course: Pt presents with sat personally recorded at 88% on home 2LNC improved to 91% on 4LNC, other V.S.S. BUN/Cr 24/1.0, Basic labs otherwise unremarkable. CT brain/Cspine reviewed and negative (official read pending). CT pelvis with right
intertroch fx. S/P 4mg IV morphine and 4mg IV zofran in ER.
Medical History
Past Medical History
Past Medical History: Reports Other (Senile Dementia, HTN, Urinary Retention/BPH, Chronic Constipation)
Past Surgical History: Reports Other (Hernia Repair, Left Hip Hemiarthroplasty (10/28/23))
Social History
Unable to obtain full social history at this time due to: Dementia
Tobacco: Non-smoker
Alcohol: None
Drug: None
Personal:
Living: Other (presenting from [facility])
Family History
Family History: Not pertinent
Allergies / Home Medications
Allergies reflects when Allergies were last updated in [employer].
Home Medications with original date entered in [employer]
Allergy/Medication List:
Allergies
Allergy/AdvReac Type Severity Reaction Status Date / Time
No Known Allergies Allergy Verified 12/26/23 22:32
Home Medications
donepezil 10 mg tablet (Aricept) 10 mg PO DAILY Mental Health/Anxiety 10/27/23
doxazosin 4 mg tablet 4 mg PO QPM Blood Pressure 10/27/23
memantine 10 mg tablet 10 mg PO QPM Mental Health/Anxiety 10/27/23
sertraline 50 mg tablet 50 mg PO DAILY Mental Health/Anxiety 10/27/23
acetaminophen 325 mg tablet 650 mg PO DAILY PRN fever>100.4 12/26/23
acetaminophen 500 mg tablet 1,000 mg PO Q12 12/26/23
bisacodyl 10 mg rectal suppository 10 mg WI DAILY PRN if mom/lactulose is ineffective 12/26/23
ipratropium 0.5 mg-albuterol 3 mg (2.5 mg base)/3 mL nebulization soln 3 ml inhalation R Q6 PRN wheezing 12/26/23
magnesium hydroxide 400 mg/5 mL oral suspension (Milk of Magnesia) 30 ml PO HS PRN constipation 12/26/23
sennosides 8.6 mg-docusate sodium 50 mg tablet (Senna-S) 2 tab-cap PO DAILY 12/26/23
trazodone 50 mg tablet 25 mg PO HS 12/26/23
Review of Systems
-
A 12 point ROS was completed and negative except as noted: Yes
Physical Exam
Vital Signs
Vital Signs
Temp Pulse Resp BP Pulse Ox
97.7 F 80 16 136/74 95
12/26/23 22:34 12/26/23 22:34 12/26/23 22:34 12/26/23 22:34 12/26/23 23:00
Physical Exam
General: Other (Elderly appearing. Mild distress 2/2 Pain. Following simple commands. )
HEENT: Moist mucous membranes and PERRLA
Respiratory: Clear; No Wheezes, Rales or Rhonchi
Cardiac: S1/S2 and Regular Rhythm; No Murmur
GI: Soft, Non Tender, Non Distended and Normal Bowel Sounds
Musculoskeletal: No Clubbing, No Cyanosis and Other (RLE abducted externally rotated and shortened. )
Neuro: Awake, Alert and Oriented (Oriented x 1 only (baseline). )
Hematologic/Lymphatic: No Lymphadenopathy
Psych: Anxious
Laboratory Results
-
12/26/23 22:56
12/26/23 22:56
Laboratory Results
PT 14.7 Sec (11.4-14.6) H 12/26/23 22:55
INR 1.17 12/26/23 22:55
APTT 28.0 Sec (23.4-35.0) 12/26/23 22:55
Total Bilirubin 0.4 mg/dl (0.2-1.3) 12/26/23 22:56
AST 27 U/L (17-59) 12/26/23 22:56
ALT 19 U/L (0-50) 12/26/23 22:56
Alkaline Phosphatase 132 U/L (38-126) H 12/26/23 22:56
Data Reviewed
-
Diagnostic Radiology: Image Personally Visualized and interpreted
Lab Data: Labs Reviewed by me
Old Records: Reviewed
Impression/Plan
-
Acute Right Hip Fracture s/p Fall
Need for Social Service Intervention
- Unwitnessed fall at [facility] out of bed. Of note also with fall 10/2023 with resultant left hip fracture s/p left hemiarthroplasty
- S/P 4mg IV morphine and 4mg IV zofran in ER
- Continue Prn Tylenol and 2-4mg IV morphine for pain
- Last Sx performed by Adiel Mccloud. ER attending did note Adiel with currently [employer] senior medical transcriptionist. [place] text was sent to Dr. Dumont and Dr. Neumann, Will consult accordingly once heard back
- PT/OT consult.
- Consult social work. appears unhappy with facility, also reporting financial difficulty.
Acute/Chronic Hypoxic Respiratory Failure
- Sat 88% on 2LNC on arrival, improved on 4LNC. Lung exam clear; may be splinting 2/2 pain
- Last admission worked up for hypoxic resp failure with pleural parencyhmal disease noted, no other acute findings
- He was given diuresis and discharged on 2LNC.
- Start Duonebs Q4h prn. Add incentive spirometry
- Obtain CXR and COVID/Flu for completeness.
- Continue appropriate analgesia and monitor for improvement.
Advanced Dementia / Anxiety
- AAOx1 Baseline. Ambulates with wheelchair.
- Coninue memantine, aricept, sertraline, trazodone
- Did require restraints with hand mitts last admission
Chronic Urinary Retention/BPH
- Chronic. Continue retention protocol. Often attributed to constipation
- Continue home doxazosin
Chronic Constipation
- Continue aggressive bowel regimen
Diet: NPO pending ortho eval
DVT Ppx: Lovenox
Code Status: DNR/DNI
[2023-12-27] VITALS (8 sets, daily range): BP systolic 91–128; BP diastolic 56–69; BMI 29.3; BMI 29.5
[2023-12-27 00:58] LABS: COVID-19 Antigen Negative (Negative)
--- NOTE | 2023-12-27 01:15 | PTCARENOTE ---
At 01:15 patient arrived from ED via stretcher on 4L O2 with purple DNR bracelet intact, without personal belongings or [facility] paperwork, pulled onto bed with assist x4 holding RLE steady; static air overlay and bed alarm placed; At
baseline patient AAOx1 with history of Alzheimer's Dementia and uses wheelchair; limited history obtained from computer medical record.
[2023-12-27 07:02] LABS: % Basophils 0.3 % (0-2); % Eosinophils 0.4 % (0-6); % Immature Granulocytes 0.4 % (0-0.5); % Lymphocytes 5.2 % (20.5-51.1); % Monocytes 5.7 % (1.7-9.3); Absolute Eosinophils 0.1 10^3/uL (0-0.7); Absolute Immature Granulocytes 0.1 10^3/uL (0-0.05); Absolute Lymphocytes 0.6 10^3/uL (1.2-3.4); Absolute Monocytes 0.7 10^3/uL (0.1-0.6); Absolute Neutrophils 10.4 10^3/uL (1.4-6.5); Hematocrit 36.3 % (39.0-52.0); Hemoglobin 11.8 g/dL (13.0-18.0); Mean Corp Hgb Conc. 32.5 g/dL (33.0-37.0); Mean Corpuscular Hgb 30.3 pg (27.0-31.0); Mean Corpuscular Volume 93.3 fL (80.0-94.0); Mean Platelet Volume 10.1 fL (7.4-10.4); Nucleated Red Blood Cells % 0 % (-); Platelet Count 292 10^3/uL (130-400); Red Blood Cell Count 3.89 10^6/uL (4.70-6.10); Red Cell Dist. Width 14.6 % (11.5-14.5); White Blood Cell Count 11.8 10^3/uL (4.8-10.8)
[2023-12-27 07:32] LABS: NT-proBNP 2420 pg/ml; Troponin I 0.019 ng/ml
[2023-12-27 07:33] LABS: Blood Urea Nitrogen 28 mg/dl (9-20); Calcium 8.8 mg/dl (8.4-10.2); Carbon Dioxide 27 mmol/L (22-30); Chloride 106 mmol/L (98-107); Estimated Creatinine Clearance 60 ml/min; Glucose 104 mg/dl (70-99); Potassium 4.9 mmol/L (3.5-5.1); Sodium 139 mmol/L (135-145); eGFR > 60.00
--- NOTE | 2023-12-27 07:54 | W.PN.UPDATE ---
Update Note
Progress Note Update
Patient seen on AM rounds. Full consult note to follow.
Tentative plan to proceed with OR tomorrow under the direction of Dr. Neumann for right hip hemiarthroplasty. Will need to contact his for consent.
We would appreciate input from cardiology and medicine for surgical clearance.
--- NOTE | 2023-12-27 08:21 | W.PN.HOSP.TC ---
Today's Communication/Plan
-
see bold
Assessment / Plan
Assessment / Plan
HPI: 83yo M with PMH Senile Dementia, HTN, Urinary Retention/BPH, Chronic Constipation presents to ER s/p Fall from [facility]. Of note pt had a fall in October and underwent Left Hip Hemiarthroplasty by Dr. Dumont on 10/28. As per
he fell out of bed but fall was unwitnessed. Pt 2/2 dementia is unable to give further details. Complains only of mild pain in left hip. ROS otherwise unattainable. does endorse concern regarding recurrent falls at [facility]. She reports
financial hardships. She confirms his DNR/DNI status. At baseline is he is AAOx1 and ambulates with a wheelchair. She reports him using 2LNC 'as needed' in the [facility] prior to transfer today
#Acute right hip fracture status post mechanical fall
Appreciate orthopedic surgery input, plan for surgery tomorrow
Check echo, consult cardiology for perioperative risk assessment
Pain meds, laxatives
#Acute/Chronic Hypoxic Respiratory Failure
Sat 88% on 2LNC on arrival, improved on 4LNC. Lung exam clear; may be splinting 2/2 pain
Last admission worked up for hypoxic resp failure with pleural parencyhmal disease noted, no other acute findings
He was given diuresis and discharged on 2LNC.
Chest x-ray/COVID/influenza negative
Continue incentive spirometry, bronchodilators, monitor
#Advanced Dementia / Anxiety
AAOx1 Baseline. Ambulates with wheelchair.
Coninue memantine, aricept, sertraline, trazodone
Did require restraints with hand mitts last admission
Patient from [facility], would like a different facility
#Chronic Urinary Retention/BPH
Chronic. Continue retention protocol. Often attributed to constipation
Continue home doxazosin
#Chronic Constipation
Continue aggressive bowel regimen
DVT prophylaxis�subcu heparin
DNR
Total time spent to see the patient on the floor, examine the patient, review data and lab results, discuss treatment plan with patient, nursing staff around 50 minutes.
Physical Exam
General: Frail, elderly, no acute distress
HEENT: Normocephalic, Atraumatic, EOMI, MMM
Respiratory: Clear to Auscultation bilaterally
Cardiac: Normal S1/S2, Regular Rate and Rhythm
GI: Soft, Nontender, Nondistended, Normal Bowel Sounds
Extremities: No Clubbing, Cyanosis
Right lower extremity shortened and externally rotated
Neuro: Pleasantly confused
Anticipated Discharge: > 48 hours
Subjective/Interval History
-
Date of Service: December 27, 2023
Patient appears comfortable. However he is not really answering questions. No fever, no vomiting.
Objective Data
-
Labs:
Laboratory Results
12/26/23 12/26/23 12/27/23
22:55 22:56 06:20
WBC 6.4 11.8 H
Hgb 11.7 L 11.8 L
Hct 34.9 L 36.3 L
Plt Count 299 292
PT 14.7 H
INR 1.17
APTT 28.0
Sodium 136 139
Potassium 4.2 4.9
Chloride 105 106
Carbon Dioxide 29 27
BUN 24 H 28 H
Creatinine 1.0 1.0
Glucose 108 H 104 H
Calcium 8.6 8.8
Total Bilirubin 0.4
AST 27
ALT 19
Alkaline Phosphatase 132 H
Vital Signs:
Vital Signs
Temp Pulse Resp BP Pulse Ox
99.1 F 86 18 106/68 96
12/27/23 07:45 12/27/23 08:11 12/27/23 08:11 12/27/23 07:45 12/27/23 08:11
I&O
12/26/23 12/27/23 12/28/23
06:59 06:59 06:59
Intake Total 0 / 0
Balance 0 / 0
[2023-12-27] MEDS: ARICEPT 10 MG PO (09:31)
[2023-12-27] MEDS: MIRALAX 17 GRAMS PO (09:31)
[2023-12-27] MEDS: TYLENOL 1000 MG PO ×3 (09:31→21:40)
[2023-12-27] MEDS: ZOLOFT 50 MG PO (09:31)
[2023-12-27] MEDS: SENOKOT-S 2 TABLET PO (09:31)
--- NOTE | 2023-12-27 11:13 | CON.CAR ---
Addendum entered and electronically signed by Gaurav Alford MD 12/27/23 15:48:
I saw and examined the patient.
The [employer]'s note was reviewed and I agree with the note.
Comment:
GEN: No distress, awake
HEENT: supple, anicteric, mmm
LUNGS: CTA, no wheezes/rales
CV: Reg, S1/S2, 1/6 syst LSB, no gallop
ABD: soft, BS+, NT/ND
EXT: No edema
NEURO: Gross non-focal
SKIN: No rash
Plan:
He has a past medical history of dementia, hypertension, multiple falls with a recent left hip hemiarthroplasty October 2023 who presents with another fall and right femur fracture. We are asked for preop evaluation. He does have a markedly
abnormal EKG but this was essentially unchanged from October 2023. Cardiac troponin is negative. He denies any overt chest pains or shortness of breath but does have baseline hypoxemia on home oxygen. proBNP is modestly elevated.
We will check an echocardiogram to evaluate his LVEF. I suspect it may be abnormal. However with his femur fracture he will need to go to the operating room to fix this.
The echo will better help us with stratify him but he will clearly be moderate to high risk for general anesthesia. I am comfortable with him proceeding to the operating room to fix his femur fracture.
Chest x-ray with no signs of congestive heart failure or active disease
Blood pressure is borderline but acceptable.
Original Note:
Consultation
Consultation Request
Date/Time Consultation Performed: 12/27/23
Requesting Provider: Dr. Rodarte
Performing Provider: Nandini Escalera PA-C for Dr. Alford
Reason for Consultation: pre op eval
Medical History
-
Chief Complaint: fall
History of Present Illness:
Patient is an 83-year-old male with past medical history of dementia , hypertension, urinary retention/BPH, with recent fall resulting in left hip hemiarthroplasty 10/2023. Since then he has been residing at [facility], who
sustained an unwitnessed fall and presented to [facility] for further evaluation. He is noted to have right femur fracture. He is planned for OR tomorrow. Cardiology consulted for preop evaluation. His EKG is abnormal with evidence of
prior anteroseptal infarct and lateral T wave abnormality. Trop 0.019. He is unable to provide me with any history and unable to tell me if he has any current complaints. He does not appear to be in acute distress. was noted to be hypoxic on
baseline 2L NC on arrival, currently sats stable on 4L. Attempted to call without answer.
PMH:
chronic hypoxia, on baseline 2L NC
fall with L hip fracture s/p hemiarthroplasty 10/2023
dementia
HTN
BPH
Past Medical History
Past Medical History: Other (in HPI)
Social History
Tobacco: Non-Smoker
Alcohol: None
Personal:
Living: [facility] (after 10/2023 admission)
Allergies / Home Medications
Allergy/AdvReac Type Severity Reaction Status Date / Time
No Known Allergies Allergy Verified 12/26/23 22:32
�Medication �Instructions �Recorded �Confirmed �Type
donepezil 10 mg tablet (Aricept) 10 mg PO DAILY Mental 10/27/23 12/26/23 History
Health/Anxiety
doxazosin 4 mg tablet 4 mg PO QPM Blood Pressure 10/27/23 12/26/23 History
memantine 10 mg tablet 10 mg PO QPM Mental Health/Anxiety 10/27/23 12/26/23 History
sertraline 50 mg tablet 50 mg PO DAILY Mental 10/27/23 12/26/23 History
Health/Anxiety
acetaminophen 325 mg tablet 650 mg PO DAILY PRN fever>100.4 12/26/23 12/26/23 History
acetaminophen 500 mg tablet 1,000 mg PO Q12 pain 12/26/23 12/26/23 History
bisacodyl 10 mg rectal suppository 10 mg [place] DAILY PRN if 12/26/23 12/26/23 History
mom/lactulose is ineffective
ipratropium 0.5 mg-albuterol 3 mg 3 ml inhalation R Q6 PRN wheezing 12/26/23 12/26/23 History
(2.5 mg base)/3 mL nebulization
soln
magnesium hydroxide 400 mg/5 mL 30 ml PO HS PRN constipation 12/26/23 12/26/23 History
oral suspension (Milk of Magnesia)
sennosides 8.6 mg-docusate sodium 2 tab-cap PO DAILY constipation 12/26/23 12/26/23 History
50 mg tablet (Senna-S)
trazodone 50 mg tablet 25 mg PO HS sleep 12/26/23 12/26/23 History
Review of Systems
-
Unable to obtain full review of systems at this time due to: Dementia
Physical Exam
Vital Signs
Temp Pulse Resp BP Pulse Ox
99.1 F 86 18 106/68 96
12/27/23 07:45 12/27/23 08:11 12/27/23 08:11 12/27/23 07:45 12/27/23 08:11
Lab Results
12/27/23 06:20
12/27/23 06:20
Troponin I 0.019 ng/ml 12/27/23 06:20
Ash-K-Ohhpzkkddhi Pept 2420 pg/ml 12/27/23 06:20
Physical Exam
General: No Apparent Distress, Comfortable and Other (on supp O2)
HEENT: Normocephalic, Anicteric and Moist Mucous Membranes
Respiratory: Clear and Non Labored Respirations
Cardiac: S1/S2 and Regular Rhythm
GI: Soft, Non Tender, Non Distended and Normal Bowel Sounds
Musculoskeletal: No Clubbing, No Cyanosis and Edema (trace -1+ of B/L LE)
Skin: Warm and Dry
Neuro: Awake and Oriented (to self)
Impression / Plan
-
Primary Epoxy Specialist: unknown
Assessment:
Presentation with unwitnessed fall
R femur fracture
Anemia
Abnormal EKG
Hypoxia, acute on chronic
fall with L hip fracture s/p hemiarthroplasty 10/2023
dementia
HTN
BPH
DNR/DNI
ECHO 12/27/23: pending
Plan:
-Patient presents with unwitnessed fall and found to have right femur fracture. He is planned for OR in AM. Cardiology consulted for preop evaluation.
-He is unable to give me any complaints at this time. He is a poor historian with known dementia
-He was hypoxic on arrival. At baseline on 2 L nasal cannula at [facility], now up to 4 L. differential would include PE, CHF, PNA
-EKG abnormal with evidence of prior anteroseptal infarct and lateral T wave abnormality. Fortunately troponin 0.019.
-proBNP 2420. Chest x-ray without events of active cardiopulmonary disease
-awaiting echo results. would consider for 1 time dose of lasix
-BPs stable on OP cardura
-attempted to call patient's for additional information, no answer.
-he will be elevated cardiovascular risk for surgery given comorbidities
-d/w nursing
Data Reviewed
-
EKG: Tracing Personally Visualized and interpreted
Radiology: Report Reviewed by me
Labs: Labs Reviewed by me
--- NOTE | 2023-12-27 12:17 | CON.ORTHO ---
Consultation
-
Date/Time Consultation Requested: 12/27/2023; time unknown
Date/Time Consultation Performed: 12/27/2023; 0700
Requesting Provider: unknown
Performing Provider: Kelsi Qiu PA-C / Dr. Claus Neumann
Reason for Consultation: Right femoral neck fracture
Consultation - Orthopedics
History
Mr. Marin is an 83 year old male with PMH of senile dementia, HTN, urinary retention/BPH and chronic constipation seen today for his right hip. He is currently residing at [facility] following a left hip hemiarthroplasty performed by
Tim in October. He sustained an unwitnessed fall and was found on the ground by staff. Patient is unable to provide further details secondary to dementia.
His reports he lived at home with her prior to his fall in October. He ambulated with the assistance of a cane at baseline, but has been utilizing and walker or wheelchair since his most recent surgery. She denies PMH of DVT, CVA, MD or DM. He
is not on any daily blood thinners. She does report his memory declined following anesthesia, but otherwise denies adverse reaction to anesthesia in the past.
Allergies / Home Medications
Allergy/AdvReac Type Severity Reaction Status Date / Time
No Known Allergies Allergy Verified 12/26/23 22:32
�Medication �Instructions �Recorded
donepezil 10 mg tablet (Aricept) 10 mg PO DAILY Mental 10/27/23
Health/Anxiety
doxazosin 4 mg tablet 4 mg PO QPM Blood Pressure 10/27/23
memantine 10 mg tablet 10 mg PO QPM Mental Health/Anxiety 10/27/23
sertraline 50 mg tablet 50 mg PO DAILY Mental 10/27/23
Health/Anxiety
acetaminophen 325 mg tablet 650 mg PO DAILY PRN fever>100.4 12/26/23
acetaminophen 500 mg tablet 1,000 mg PO Q12 pain 12/26/23
bisacodyl 10 mg rectal suppository 10 mg [place] DAILY PRN if 12/26/23
mom/lactulose is ineffective
ipratropium 0.5 mg-albuterol 3 mg 3 ml inhalation R Q6 PRN wheezing 12/26/23
(2.5 mg base)/3 mL nebulization
soln
magnesium hydroxide 400 mg/5 mL 30 ml PO HS PRN constipation 12/26/23
oral suspension (Milk of Magnesia)
sennosides 8.6 mg-docusate sodium 2 tab-cap PO DAILY constipation 12/26/23
50 mg tablet (Senna-S)
trazodone 50 mg tablet 25 mg PO HS sleep 12/26/23
Vital Signs / Lab Results
Temp Pulse Resp BP Pulse Ox
98.5 F 92 16 109/66 93
12/27/23 11:05 12/27/23 11:05 12/27/23 11:05 12/27/23 11:05 12/27/23 11:05
12/27/23 06:20
12/27/23 06:20
XR Right Hip IMPRESSION:
There is acute subcapital fracture of the right femur with 1 cm superior riding of the distal fracture fragment.
CT Scan Pelvis/RLE IMPRESSION:
There is acute minimally comminuted transcervical fracture of the right femur associated with approximately 1 cm superior riding/impaction of the distal fracture fragment.
Physical Exam:
General: pleasant male in NAD, not oriented to person, place or time
Head: atraumatic, normocephalic
Eyes: sclera anicteric
Ears: normal hearing
Heart: no edema
Lungs: normal work of breathing, no audible wheezing
Right hip: no obvious erythema, ecchymosis or lesions. Patient grimaces with palpation about the anterior hip. Thigh soft and compressible. ROM deferred secondary to known fracture. Positive log roll. Calf soft and nontender. Patient able to wiggle
toes, plantar and dorsiflex ankle. Neurovascularly intact distally.
Assessment / Plan
Right femoral neck fracture
--Unfortunately, Toribio sustained a femoral neck fracture in his fall. We recommend proceeding with a right hip hemiarthroplasty. I was able to speak with his , Dinora, over the phone. We discussed the risks, benefits, alternatives, recovery
process and potential complications. She would like to proceed with surgical intervention of his fracture. She provided consent for blood and surgery over the phone. We will plan to proceed with OR tomorrow under the direction of Dr. Neumann.
--NPO after midnight for OR 12/27.
--NWB to RLE until surgery. Would recommend close monitoring of patient, as his reports he gets out of bed frequently.
--Continue pain control per primary. Ice for pain and edema control.
--Irrigation and abx ordered to OR.
--T+S ordered.
[2023-12-27] MEDS: ROXICODONE 5 MG PO ×2 (13:11→18:29)
--- NOTE | 2023-12-27 15:36 | CM ---
Reviewed the chart notes and spoke with the patient's spouse via telephone. 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 CM spoke with [facility] liaison Ricardo who confirmed correction status. The patient is wheelchair bound, but is able to walk
with rolling walker with close supervision. The patient is expected to go to OR tomorrow for hip fx repair. CM continues to be available to patient/family and is monitoring medical plan for needs at discharge.
Plan: Discharge plans will be back to [facility] when medically stable.
--- NOTE | 2023-12-27 15:37 | CARDSERVLU ---
Echocardiogram with Lumason completed after protocol screening completed. Allergies verified.
Patent IV site:Left upper arm 22G PC inserted first attempt, site clear, no redness, rapid blood return
IV site flushed with 0.9% NaCl pre and post administration.
Diluted bolus method utilized to enhance visualization of ventricular fowler.
Total volume given: _4___ mL
Patient tolerated all procedures well without complications.
Report called to floor, notified new IV inserted Left upper arm , site clear.
[2023-12-27] MEDS: NAMENDA 10 MG PO (17:11)
[2023-12-27] MEDS: CARDURA 4 MG PO (17:11)
[2023-12-27] MEDS: HEPARIN 5000 UNITS SC (17:12)
[2023-12-27] MEDS: LASIX 20 MG IV (17:12)
[2023-12-27] MEDS: DESYREL 25 MG PO (21:40)
[2023-12-27] MEDS: COREG 3.125 MG PO (21:40)
[2023-12-27] MEDS: HALDOL 1 MG IV (23:34)
[2023-12-28] VITALS (12 sets, daily range): BP systolic 103–130; BP diastolic 63–79
[2023-12-28] MEDS: ROXICODONE 5 MG PO ×2 (04:46→10:46)
[2023-12-28 06:39] LABS: Hematocrit 36.9 % (39.0-52.0); Hemoglobin 11.9 g/dL (13.0-18.0); Mean Corp Hgb Conc. 32.2 g/dL (33.0-37.0); Mean Corpuscular Hgb 30.4 pg (27.0-31.0); Mean Corpuscular Volume 94.4 fL (80.0-94.0); Mean Platelet Volume 9.9 fL (7.4-10.4); Platelet Count 252 10^3/uL (130-400); Red Blood Cell Count 3.91 10^6/uL (4.70-6.10); Red Cell Dist. Width 14.6 % (11.5-14.5)
--- NOTE | 2023-12-28 06:49 | W.PN.UPDATE ---
Update Note
Progress Note Update
Patient sleeping this morning. He appears comfortable. Right hip exam unchanged since yesterday. He will remain n.p.o. in anticipation of right hip hemiarthroplasty later today by Dr. Neumann. Surgical consent on chart. Ancef, transischemic acid
irrigation and antibiotic irrigation ordered for OR later today.
[2023-12-28 08:47] LABS: Blood Urea Nitrogen 27 mg/dl (9-20); Calcium 8.4 mg/dl (8.4-10.2); Carbon Dioxide 29 mmol/L (22-30); Chloride 104 mmol/L (98-107); Estimated Creatinine Clearance 54 ml/min; Glucose 105 mg/dl (70-99); Magnesium 2.1 mg/dl (1.6-2.3); Potassium 4.5 mmol/L (3.5-5.1); Sodium 133 mmol/L (135-145); eGFR > 60.00
--- NOTE | 2023-12-28 08:59 | W.PN.HOSP.TC ---
Today's Communication/Plan
-
For surgical fixation of hip fracture today
Assessment / Plan
Assessment / Plan
HPI: 83yo M with PMH Senile Dementia, HTN, Urinary Retention/BPH, Chronic Constipation presents to ER s/p Fall from [facility]. Of note pt had a fall in October and underwent Left Hip Hemiarthroplasty by Dr. Dumont on 10/28. As per
he fell out of bed but fall was unwitnessed. Pt 2/2 dementia is unable to give further details. Complains only of mild pain in left hip. ROS otherwise unattainable. does endorse concern regarding recurrent falls at [facility]. She reports
financial hardships. She confirms his DNR/DNI status. At baseline is he is AAOx1 and ambulates with a wheelchair. She reports him using 2LNC 'as needed' in the correction prior to transfer today
#Acute right hip fracture status post mechanical fall
Appreciate orthopedic surgery input, plan for surgery today
Echo reviewed, appreciate cardiology input�patient is moderate�high risk, but may proceed for surgery
Pain meds, laxatives
#Acute/Chronic Hypoxic Respiratory Failure
Sat 88% on 2LNC on arrival, improved on 4LNC. Lung exam clear; may be splinting 2/2 pain
Last admission worked up for hypoxic resp failure with pleural parencyhmal disease noted, no other acute findings
He was given diuresis and discharged on 2LNC.
Chest x-ray/COVID/influenza negative
Continue incentive spirometry, bronchodilators, monitor
#Advanced Dementia / Anxiety
AAOx1 Baseline. Ambulates with wheelchair.
Coninue memantine, aricept, sertraline, trazodone
Did require restraints with hand mitts last admission
Patient from [facility], would like a different facility
Continue IV Haldol as needed
#Chronic Urinary Retention/BPH
Chronic. Continue retention protocol. Often attributed to constipation
Continue home doxazosin
#Chronic Constipation
Continue aggressive bowel regimen
DVT prophylaxis�subcu heparin
DNR
Total time spent to see the patient on the floor, examine the patient, review data and lab results, discuss treatment plan with patient, nursing staff around 35 minutes.
Physical Exam
General: Frail, elderly, no acute distress
HEENT: Normocephalic, Atraumatic, EOMI, MMM
Respiratory: Clear to Auscultation bilaterally
Cardiac: Normal S1/S2, Regular Rate and Rhythm
GI: Soft, Nontender, Nondistended, Normal Bowel Sounds
Extremities: No Clubbing, Cyanosis
Right lower extremity shortened and externally rotated
Neuro: Pleasantly confused
Anticipated Discharge: 24 - 48 hours
Subjective/Interval History
-
Date of Service: December 28, 2023
Patient agitated last night, required 1 dose of IV Haldol. He is currently calm. Refuses to answer questions. No fever, no vomiting.
Objective Data
-
Labs:
Laboratory Results
12/28/23 12/28/23
06:25 07:47
WBC 9.0
Hgb 11.9 L
Hct 36.9 L
Plt Count 252
Sodium Cancelled 133 L
Potassium Cancelled 4.5
Chloride Cancelled 104
Carbon Dioxide Cancelled 29
BUN Cancelled 27 H
Creatinine Cancelled 1.1
Glucose Cancelled 105 H
Calcium Cancelled 8.4
Vital Signs:
Vital Signs
Temp Pulse Resp BP Pulse Ox
99.1 F 102 16 122/73 94
12/28/23 07:39 12/28/23 07:39 12/28/23 07:39 12/28/23 07:39 12/28/23 07:39
I&O
12/27/23 12/28/23 12/29/23
06:59 06:59 06:59
Intake Total 0 / 0 1080 / 1080
Balance 0 / 0 1080 / 1080
[2023-12-28] MEDS: ARICEPT 10 MG PO (09:23)
[2023-12-28] MEDS: COREG 3.125 MG PO ×2 (09:23→21:09)
[2023-12-28] MEDS: TYLENOL 1000 MG PO ×2 (09:24→21:09)
[2023-12-28] MEDS: ZOLOFT 50 MG PO (09:24)
[2023-12-28] MEDS: SENOKOT-S 2 TABLET PO (09:24)
[2023-12-28] MEDS: MIRALAX PO (09:25)
--- NOTE | 2023-12-28 10:41 | CM ---
Reviewed the chart notes and spoke with the RN. The patient is for right hip hemiarthroplasty later today. CM continues to be available to patient/family and is monitoring medical plan for needs at discharge.
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 No precert required.
--- NOTE | 2023-12-28 17:08 | PTCARENOTE ---
Pt arrived back to [facility] from [facility] S?p R hip hemiarthroplasty. Pt R hip aquacel dressing C/D/I, NV intact. Pt resting comfortable. Daughter at bedside updated and questions answered. Bed locked and in lowest position, call coon within reach.
[2023-12-28] MEDS: TYLENOL PO (17:21)
[2023-12-28] MEDS: ANCEF 5 IV (18:03)
[2023-12-28] MEDS: ASPIRIN PO (18:09)
[2023-12-28] MEDS: CARDURA PO (18:09)
[2023-12-28] MEDS: NAMENDA PO (18:10)
[2023-12-28] MEDS: COLACE 100 MG PO (21:08)
[2023-12-28] MEDS: BACTROBAN 2% OINTMENT 1 APPLIC NASAL (21:09)
[2023-12-28] MEDS: DESYREL 25 MG PO (21:09)
[2023-12-28] MEDS: SENOKOT 17.1999999999999993 MG PO (21:09)
[2023-12-29] VITALS (8 sets, daily range): BP systolic 92–128; BP diastolic 55–79; PULSE 98; O2SAT 78
[2023-12-29] MEDS: ANCEF 5 IV (02:05)
[2023-12-29] MEDS: ROXICODONE 5 MG PO ×2 (03:08→08:48)
[2023-12-29 06:44] LABS: Hematocrit 33.7 % (39.0-52.0); Hemoglobin 11.2 g/dL (13.0-18.0); Mean Corp Hgb Conc. 33.2 g/dL (33.0-37.0); Mean Corpuscular Hgb 30.4 pg (27.0-31.0); Mean Corpuscular Volume 91.6 fL (80.0-94.0); Mean Platelet Volume 10.4 fL (7.4-10.4); Platelet Count 266 10^3/uL (130-400); Red Blood Cell Count 3.68 10^6/uL (4.70-6.10); Red Cell Dist. Width 14.2 % (11.5-14.5)
[2023-12-29 07:14] LABS: Blood Urea Nitrogen 28 mg/dl (9-20); Calcium 7.9 mg/dl (8.4-10.2); Carbon Dioxide 27 mmol/L (22-30); Chloride 104 mmol/L (98-107); Estimated Creatinine Clearance 75 ml/min; Glucose 119 mg/dl (70-99); Potassium 4.9 mmol/L (3.5-5.1); Sodium 134 mmol/L (135-145); eGFR > 60.00
--- NOTE | 2023-12-29 07:41 | W.PN.ORTHO ---
Today's Communication / Plan
-
83-year-old male with significant past medical history of senile dementia status post right hip hemiarthroplasty with Dr. Neumann postop day 1
-Anterior hip precautions x 6 weeks
-PT/OT/discharge planning
-ASA 325 mg daily x 30 days for DVT prophylaxis was recommended otherwise per primary
-Pain appears controlled on current regimen
-Diet per primary
-Orthopedic surgery will continue to follow
Assessment
.
Dressing:
Clean, dry and intact.
Plan
.
Activity:
Out of bed.
PT/OT
Subjective
.
.:
Patient resting comfortably.
Vital Signs and Labs
.
Vital Signs and Labs:
Lab Results
12/29/23 05:55
12/29/23 05:55
Temp Pulse Resp BP Pulse Ox
98.0 F 87 18 128/79 99
12/29/23 03:10 12/29/23 03:10 12/29/23 03:10 12/29/23 03:10 12/29/23 03:10
PT 14.7 Sec (11.4-14.6) H 12/26/23 22:55
INR 1.17 12/26/23 22:55
Non-invasive Hgb result: 13.4
Physical Exam
-
Examination of the right hip shows intact dressing without saturation. Unable to follow commands or responsive for neurovascular examination equal leg length
--- NOTE | 2023-12-29 08:20 | W.PN.HOSP.TC ---
Today's Communication/Plan
-
see bold
Assessment / Plan
Assessment / Plan
HPI: 83yo M with PMH Senile Dementia, HTN, Urinary Retention/BPH, Chronic Constipation presents to ER s/p Fall from [facility]. Of note pt had a fall in October and underwent Left Hip Hemiarthroplasty by Dr. Dumont on 10/28. As per
he fell out of bed but fall was unwitnessed. Pt / dementia is unable to give further details. Complains only of mild pain in left hip. ROS otherwise unattainable. does endorse concern regarding recurrent falls at [facility]. She reports
financial hardships. She confirms his DNR/DNI status. At baseline is he is AAOx1 and ambulates with a wheelchair. She reports him using 2LNC [facility] prior to transfer today
#Acute right hip fracture status post mechanical fall
Appreciate orthopedic surgery input, s/p right hip hemiarthroplasty 12/[address] Neumann
Pain meds, laxatives, PT/OT
#Acute on chronic hypoxic respiratory failure
#Probable acute on chronic heart failure with a reduced ejection fraction
Chest x-ray/COVID/influenza negative
Patient currently requiring 4 L of oxygen, he is usually on 2
Echo EF 20-25%, stage 2 DD, +mod global hypokinesis
Suspect a component of fluid overload, add on BNP, echo reviewed
Likely needs lasix, but BP too low right now, will discuss with cardiology
Continue incentive spirometry, bronchodilators, monitor
#Advanced Dementia / Anxiety
AAOx1 Baseline. Ambulates with wheelchair.
Coninue memantine, aricept, sertraline, trazodone
Did require restraints with hand mitts last admission
Patient from [facility], would like a different facility
Continue IV Haldol as needed
#Chronic Urinary Retention/BPH
Chronic. Continue retention protocol. Often attributed to constipation
Continue home doxazosin
#Chronic Constipation
Continue aggressive bowel regimen
DVT prophylaxis�subcu lovenox
DNR
Total time spent to see the patient on the floor, examine the patient, review data and lab results, discuss treatment plan with patient, nursing staff around 50 minutes.
Physical Exam
General: Frail, elderly, no acute distress
HEENT: Normocephalic, Atraumatic, EOMI, MMM
Respiratory: Clear to Auscultation bilaterally
Cardiac: Normal S1/S2, Regular Rate and Rhythm
GI: Soft, Nontender, Nondistended, Normal Bowel Sounds
Extremities: No Clubbing, Cyanosis
Right lower extremity shortened and externally rotated
Neuro: Pleasantly confused
Anticipated Discharge: 24 - 48 hours
Subjective/Interval History
-
Date of Service: December 29, 2023
No acute events. No fever, no vomiting.
Objective Data
-
Labs:
Laboratory Results
12/29/23
05:55
WBC 9.0
Hgb 11.2 L
Hct 33.7 L
Plt Count 266
Sodium 134 L
Potassium 4.9
Chloride 104
Carbon Dioxide 27
BUN 28 H
Creatinine 0.8
Glucose 119 H
Calcium 7.9 L
Vital Signs:
Vital Signs
Temp Pulse Resp BP Pulse Ox
97.8 F 95 16 115/62 93
12/29/23 07:53 12/29/23 07:53 12/29/23 07:53 12/29/23 07:53 12/29/23 07:53
I&O
12/28/23 12/29/23 12/30/23
06:59 06:59 06:59
Intake Total 1080 / 1080 100 / 100
Balance 1080 / 1080 100 / 100
[2023-12-29] MEDS: TYLENOL 1000 MG PO ×3 (08:48→21:02)
[2023-12-29] MEDS: SENOKOT-S 2 TABLET PO (08:49)
[2023-12-29] MEDS: ARICEPT 10 MG PO (08:49)
[2023-12-29] MEDS: MIRALAX 17 GRAMS PO (08:49)
[2023-12-29] MEDS: COLACE 100 MG PO ×2 (08:49→20:55)
[2023-12-29] MEDS: ZOLOFT 50 MG PO (08:49)
[2023-12-29] MEDS: ASPIRIN 325 MG PO (08:49)
[2023-12-29] MEDS: BACTROBAN 2% OINTMENT 1 APPLIC NASAL ×2 (08:50→20:55)
[2023-12-29] MEDS: SENOKOT 17.1999999999999993 MG PO ×2 (08:50→20:55)
[2023-12-29] MEDS: COREG 3.125 MG PO ×2 (08:50→20:44)
--- NOTE | 2023-12-29 10:23 | PN.CDI ---
CDI
- -
CDI:
Physician Documentation Request
Admit Date: 12/27/23 00:19
Dear Doctor Do,
Please review the following and provide your response in the progress notes.
Clinical Indicators:
- 12/27 PN 'Acute/Chronic Hypoxic Respiratory Failure'
- 'reports him using 2LNC 'as needed' in the assisted'
- Documented 4L-6L NC maintaining pulse ox > 92%
Please clarify a diagnosis associated with 'as needed' use of home O2:
Acute on chronic hypoxic respiratory failure requiring continuous use home O2
Acute hypoxic respiratory failure requiring intermittent home O2 use, chronic respiratory failure ruled out
Other
Use of terms such as suspected, likely, concern for, or probable (associated with a specific diagnosis that is being evaluated, monitored, or treated as if it exists) are acceptable and can be coded in the inpatient setting, when documented at the
time of discharge.
Thank you,
Robert Elder RN
CDI Specialist
Please use your independent medical judgment in providing your response.
--- NOTE | 2023-12-29 11:55 | W.PN.CARDCBS ---
Today's Communication / Plan
-
Monitor hemodynamics and O2 requirements in the postoperative period
Preoperative echocardiogram with newly diagnosed cardiomyopathy with plan for conservative medical therapy
No further IV fluids with careful monitoring of volume status
If blood pressures improve would consider changing Cardura to low-dose MARK inhibitor
Consider adding oral Lasix once blood pressures improve
Continue carvedilol
DVT prophylaxis as per primary
Impression / Plan
-
Primary Internal Control Analyst: unknown
Assessment:
Presentation with unwitnessed fall
R femur fracture status post ORIF 12/28/2023
Anemia
Abnormal EKG
Hypoxia, acute on chronic
fall with L hip fracture s/p hemiarthroplasty 10/2023
dementia
HTN
BPH
DNR/DNI
ECHO 12/27/23: Severely reduced left ventricular systolic function with a EF estimated 20-25% by Duke's method and global hypokinesis with regional variations. Grade 2 diastolic dysfunction. Normal RV size and systolic function. Mild to
moderate MR. Mild to moderate TR. Estimated pulmonary artery pressure estimated 35 mmHg. No prior study available.
Plan:
83-year-old gentleman with advanced dementia, mcfp with multiple falls who presented following an unwitnessed fall with acute right femur fracture status post ORIF 12/28/2023. He also has a recent left hip hemiarthroplasty October 2023
after a fall.
-He remains in sinus rhythm on telemetry postop.
-Postop EKG with baseline artifact which shows normal sinus rhythm with prior inferior and anterior septal infarct. T wave abnormality laterally. When compared to prior study no significant change.
-He is still requiring nasal cannula O2 satting 93% on 4 L.
-Preoperative echocardiogram showed dilated cardiomyopathy with an EF of 20 to 25% with no prior study available.
-Chest x-ray 12/27/2023 showed no acute cardiopulmonary abnormality
-Careful monitoring of volume status although patient has overall poor intake given advanced dementia
-Could consider oral Lasix once blood pressure is improved
-Continue carvedilol.
-Would hold outpatient Cardura given lower blood pressure trends. If blood pressures improved could consider changing Cardura to an MARK inhibitor given cardiomyopathy
-DVT prophylaxis with aspirin per primary
-CODE STATUS reviewed, DNR
Progress Note - Internal Control Analyst
Subjective
Date of Service: December 29, 2023
Seen and examined. Patient is nonverbal sitting upright in in bed with breakfast in front of him but not eating. Offers no complaints. According to nursing no events overnight.
Objective
Labs:
12/29/23 05:55
12/29/23 05:55
Labs
Hgb 11.2 g/dL (13.0-18.0) L 12/29/23 05:55
Hct 33.7 % (39.0-52.0) L 12/29/23 05:55
Plt Count 266 10^3/uL (130-400) 12/29/23 05:55
PT 14.7 Sec (11.4-14.6) H 12/26/23 22:55
INR 1.17 12/26/23 22:55
APTT 28.0 Sec (23.4-35.0) 12/26/23 22:55
Sodium 134 mmol/L (135-145) L 12/29/23 05:55
Potassium 4.9 mmol/L (3.5-5.1) 12/29/23 05:55
BUN 28 mg/dl (9-20) H 12/29/23 05:55
Creatinine 0.8 mg/dL (0.7-1.3) 12/29/23 05:55
Glucose 119 mg/dl (70-99) H 12/29/23 05:55
Troponins
12/27/23
06:20
Troponin I 0.019
Vital Signs and I&O:
Vital Signs
Temp Pulse Resp BP Pulse Ox
97.7 F 103 16 92/63 93
12/29/23 11:12 12/29/23 11:12 12/29/23 11:12 12/29/23 11:12 12/29/23 11:12
Vital Signs
Temp Pulse Resp BP Pulse Ox
97.7 F 103 16 92/63 93
12/29/23 11:12 12/29/23 11:12 12/29/23 11:12 12/29/23 11:12 12/29/23 11:12
Intake & Output
12/27/23 12/28/23 12/29/23 12/30/23
06:59 06:59 06:59 06:59
Intake Total 0 / 0 1080 / 1080 100 / 100
Balance 0 / 0 1080 / 1080 100 / 100
Physical Exam
Physical Exam
General: 83-year-old gentleman with nasal cannula O2. Sitting upright in bed offering no complaints.
Heart: Regular, positive S1/S2, 2/6 SM
Lungs: Overall poor effort. Decreased breath sounds bilaterally without crackles
Abd: Positive BS, NT/ND, neg rebound/rigidity/guarding
Ext: Status post ORIF right hip. Trace right ankle edema
[2023-12-29 15:35] LABS: NT-proBNP 4590 pg/ml
--- NOTE | 2023-12-29 15:56 | CM ---
Reviewed the chart notes and spoke with the patient's spouse at the bedside. IMM signed and placed on the chart. Patient's spouse is in agreement with the patient returning to [facility] where he is a group home resident at this point. CM continues to
be available to patient/family and is monitoring medical plan for needs at discharge.
Plan: Discharge to back to [facility] when medically stable. No precert required.
[2023-12-29] MEDS: NAMENDA 10 MG PO (17:28)
[2023-12-29] MEDS: LOVENOX 40 MG SC (17:28)
[2023-12-29] MEDS: CARDURA 4 MG PO (17:28)
[2023-12-29] MEDS: DESYREL 25 MG PO (21:03)
[2023-12-30] VITALS (8 sets, daily range): BP systolic 85–123; BP diastolic 40–69; BMI 29.1
--- NOTE | 2023-12-30 05:24 | PTCARENOTE ---
Unable to obtain a non-invasive Hg. Did not put an order for an H&H because a CBC & BMP already ordered for the morning.
--- NOTE | 2023-12-30 07:52 | W.PN.HOSP.TC ---
Today's Communication/Plan
-
see bold
Assessment / Plan
Assessment / Plan
HPI: 83yo M with PMH Senile Dementia, HTN, Urinary Retention/BPH, Chronic Constipation presents to ER s/p Fall from [facility]. Of note pt had a fall in October and underwent Left Hip Hemiarthroplasty by Dr. Dumont on 10/28. As per
he fell out of bed but fall was unwitnessed. Pt / dementia is unable to give further details. Complains only of mild pain in left hip. ROS otherwise unattainable. does endorse concern regarding recurrent falls at [facility]. She reports
financial hardships. She confirms his DNR/DNI status. At baseline is he is AAOx1 and ambulates with a wheelchair. She reports him using 2LNC 'as needed' in the residential prior to transfer today
#Acute right hip fracture status post mechanical fall
Appreciate orthopedic surgery input, s/p right hip hemiarthroplasty 12/[address] Neumann
Pain meds, laxatives, PT/OT
Return to [facility] when stable
#Acute on chronic hypoxic respiratory failure
#Probable acute on chronic heart failure with a reduced ejection fraction
Chest x-ray/COVID/influenza negative
Patient back down to 2 L, was requiring 4 L of oxygen, he is usually on 2
Echo EF 20-25%, stage 2 DD, +mod global hypokinesis
Suspect a component of fluid overload, BNP 4590, echo reviewed
Started on Lasix 40 mg IV daily 12/29 by cardiology
Monitor creatinine, trend weights
Continue incentive spirometry, bronchodilators, monitor
#Advanced Dementia / Anxiety
AAOx1 Baseline. Ambulates with wheelchair.
Coninue memantine, aricept, sertraline, trazodone
Did require restraints with hand mitts last admission
Patient from [facility]
Continue IV Haldol as needed
#Cardiomyopathy
Started on lisinopril 2.5 mg daily by cardiology 12/29, continue Coreg
#Acute blood loss anemia from surgery
Hemoglobin 10.1 today, was 11.9 prior to surgery
Continue to monitor
#Chronic Urinary Retention/BPH
Chronic. Continue retention protocol. Often attributed to constipation -currently on aggressive bowel regimen
Continue home doxazosin
#Chronic Constipation
Continue aggressive bowel regimen
DVT prophylaxis�subcu lovenox
DNR
Updated daughter on phone 12/29, discussed hospice as a future possibility
Total time spent to see the patient on the floor, examine the patient, review data and lab results, discuss treatment plan with patient, nursing staff around 51 minutes.
Physical Exam
General: Frail, elderly, no acute distress
HEENT: Normocephalic, Atraumatic, EOMI, MMM
Respiratory: Clear to Auscultation bilaterally
Cardiac: Normal S1/S2, Regular Rate and Rhythm
GI: Soft, Nontender, Nondistended, Normal Bowel Sounds
Extremities: No Clubbing, Cyanosis
Right hip incision dressed
Neuro: Pleasantly confused
Anticipated Discharge: 24 - 48 hours
Subjective/Interval History
-
Date of Service: December 30, 2023
No acute events overnight. No fever, no vomiting.
Objective Data
-
Labs:
Laboratory Results
12/30/23
07:01
WBC Pending
Hgb Pending
Hct Pending
Plt Count Pending
Sodium Pending
Potassium Pending
Chloride Pending
Carbon Dioxide Pending
BUN Pending
Creatinine Pending
Glucose Pending
Calcium Pending
Vital Signs:
Vital Signs
Temp Pulse Resp BP Pulse Ox
98 F 86 17 115/69 99
12/30/23 07:44 12/30/23 07:44 12/30/23 07:44 12/30/23 07:44 12/30/23 07:44
I&O
12/29/23 12/30/23 12/31/23
06:59 06:59 06:59
Intake Total 100 / 100 240 / 240
Balance 100 / 100 240 / 240
[2023-12-30 08:03] LABS: Hemoglobin 10.1 g/dL (13.0-18.0); Mean Corp Hgb Conc. 32.6 g/dL (33.0-37.0); Mean Corpuscular Hgb 30.3 pg (27.0-31.0); Mean Corpuscular Volume 93.1 fL (80.0-94.0); Mean Platelet Volume 10.7 fL (7.4-10.4); Platelet Count 235 10^3/uL (130-400); Red Blood Cell Count 3.33 10^6/uL (4.70-6.10); Red Cell Dist. Width 14.4 % (11.5-14.5); White Blood Cell Count 7.5 10^3/uL (4.8-10.8)
--- NOTE | 2023-12-30 08:39 | W.PN.ORTHO ---
Today's Communication / Plan
-
83-year-old male with significant past medical history of senile dementia status post right hip hemiarthroplasty with Dr. Neumann postop day 2
-Anterior hip precautions x 6 weeks
-PT/OT/discharge planning
-On Lovenox 40mg every evening per primary team. Recommend one month of DVT prophylaxis on discharge.
-Pain appears controlled on current regimen
-Diet per primary
-Aquacel dressing to remain in place for 7-10 days.
-Miki to be removed at [facility] two weeks postop
-Follow up outpatient at 4 weeks postop
-Patient is orthopedically stable. Orthopedics will sign off at this time. Please reach out with any questions or concerns
Assessment
.
Dressing:
Clean, dry and intact.
Plan
.
Surgery / Date: Right hemiarthroplasty 12/28/23 Dr. Neumann
DVT Prophylaxis: Aspirin
Activity:
Out of bed.
PT/OT
Subjective
.
.:
Patient resting comfortably.
Vital Signs and Labs
.
Vital Signs and Labs:
Lab Results
12/30/23 07:01
Temp Pulse Resp BP Pulse Ox
98 F 86 17 115/69 99
12/30/23 07:44 12/30/23 07:44 12/30/23 07:44 12/30/23 07:44 12/30/23 07:44
PT 14.7 Sec (11.4-14.6) H 12/26/23 22:55
INR 1.17 12/26/23 22:55
Non-invasive Hgb result: 13.4
Physical Exam
-
Examination of the right hip shows intact dressing without saturation. Mild tenderness to palpation of the lateral thigh. Unable to follow commands or responsive for neurovascular
[2023-12-30] MEDS: MIRALAX 17 GRAMS PO (08:47)
[2023-12-30] MEDS: COREG 3.125 MG PO (08:48)
[2023-12-30] MEDS: SENOKOT 17.1999999999999993 MG PO (08:48)
[2023-12-30] MEDS: SENOKOT-S 2 TABLET PO ×2 (08:48→20:52)
[2023-12-30] MEDS: TYLENOL 1000 MG PO ×3 (08:48→21:01)
[2023-12-30] MEDS: ARICEPT 10 MG PO (08:49)
[2023-12-30] MEDS: COLACE 100 MG PO (08:49)
[2023-12-30] MEDS: ZOLOFT 50 MG PO (08:49)
[2023-12-30 08:50] LABS: Blood Urea Nitrogen 36 mg/dl (9-20); Calcium 7.8 mg/dl (8.4-10.2); Carbon Dioxide 27 mmol/L (22-30); Chloride 104 mmol/L (98-107); Estimated Creatinine Clearance 60 ml/min; Glucose 104 mg/dl (70-99); Potassium 4.3 mmol/L (3.5-5.1); Sodium 135 mmol/L (135-145); eGFR > 60.00
[2023-12-30] MEDS: ZESTRIL 2.5 MG PO (11:51)
--- NOTE | 2023-12-30 11:56 | W.PN.CARDCBS ---
Today's Communication / Plan
-
Treat for acute systolic CHF with hypoxia and elevated proBNP with 40 mg of IV Lasix
Add lisinopril to Coreg for cardiomyopathy
Treat conservatively with severe dementia
Impression / Plan
-
Primary [place] Worker: unknown
Assessment:
Presentation with unwitnessed fall
R femur fracture status post ORIF 12/28/2023
Acute systolic CHF
Cardiomyopathy with ejection fraction of 20-25% 12/27/2023
fall with L hip fracture s/p hemiarthroplasty 10/2023
Anemia
dementia
HTN
BPH
DNR/DNI
ECHO 12/27/23: Severely reduced left ventricular systolic function with a EF estimated 20-25% by [facility]'s method and global hypokinesis with regional variations. Grade 2 diastolic dysfunction. Normal RV size and systolic function. Mild to
moderate MR. Mild to moderate TR. Estimated pulmonary artery pressure estimated 35 mmHg. No prior study available.
Plan:
He is a poor historian due to dementia
He remains on 4 L of oxygen and proBNP was 4500
We will give 40 mg of IV Lasix now
Coreg has been added for cardiomyopathy and will add low-dose lisinopril
Conservative treatment given severe dementia
Discussed with primary service
PREADMIT DATA
83-year-old gentleman with advanced dementia, halfway with multiple falls who presented following an unwitnessed fall with acute right femur fracture status post ORIF 12/28/2023. He also has a recent left hip hemiarthroplasty October 2023
after a fall.
Progress Note - [place] Worker
Subjective
Date of Service: December 30, 2023
Appears confused
Objective
Labs:
12/30/23 07:01
12/30/23 07:01
Labs
Hgb 10.1 g/dL (13.0-18.0) L 12/30/23 07:01
Hct 31.0 % (39.0-52.0) L 12/30/23 07:01
Plt Count 235 10^3/uL (130-400) 12/30/23 07:01
PT 14.7 Sec (11.4-14.6) H 12/26/23 22:55
INR 1.17 12/26/23 22:55
APTT 28.0 Sec (23.4-35.0) 12/26/23 22:55
Sodium 135 mmol/L (135-145) 12/30/23 07:01
Potassium 4.3 mmol/L (3.5-5.1) 12/30/23 07:01
BUN 36 mg/dl (9-20) H 12/30/23 07:01
Creatinine 1.0 mg/dL (0.7-1.3) 12/30/23 07:01
Glucose 104 mg/dl (70-99) H 12/30/23 07:01
Vital Signs and I&O:
Vital Signs
Temp Pulse Resp BP Pulse Ox
98.5 F 88 17 123/69 95
12/30/23 11:30 12/30/23 11:30 12/30/23 11:30 12/30/23 11:30 12/30/23 11:30
Vital Signs
Temp Pulse Resp BP Pulse Ox
98.5 F 88 17 123/69 95
12/30/23 11:30 12/30/23 11:30 12/30/23 11:30 12/30/23 11:30 12/30/23 11:30
Intake & Output
12/28/23 12/29/23 12/30/23 12/31/23
06:59 06:59 06:59 06:59
Intake Total 1080 / 1080 100 / 100 240 / 240
Balance 1080 / 1080 100 / 100 240 / 240
Physical Exam
Physical Exam
General: Awake but confused
Neck: Supple, no JVD, HJR, carotids +2 B/L, no bruits bilaterally.
Heart: Non displaced PMI, RRR, no murmurs, No S3, S4, no rubs.
Lungs: Poor effort
Extremities: No clubbing, cyanosis or edema bilaterally.
Neuro: Awake but confused.
[2023-12-30] MEDS: FLUSH (NSS) 2 FLUSH IV (12:35)
[2023-12-30] MEDS: LASIX 40 MG IV (12:35)
[2023-12-30] MEDS: CARDURA 4 MG PO (17:20)
[2023-12-30] MEDS: NAMENDA 10 MG PO (17:20)
[2023-12-30] MEDS: LOVENOX 40 MG SC (17:21)
[2023-12-30] MEDS: COREG PO (20:13)
[2023-12-30] MEDS: MIRALAX PO ×2 (20:51→21:32)
[2023-12-30] MEDS: DESYREL 25 MG PO (21:02)
[2023-12-31 00:23] VITALS: BMI 28.8
[2023-12-31 03:06] VITALS: BP 107/64
[2023-12-31 06:00] VITALS: BMI 28.8
[2023-12-31 07:07] LABS: Hematocrit 30.1 % (39.0-52.0); Hemoglobin 9.9 g/dL (13.0-18.0); Mean Corp Hgb Conc. 32.9 g/dL (33.0-37.0); Mean Corpuscular Hgb 30.7 pg (27.0-31.0); Mean Corpuscular Volume 93.2 fL (80.0-94.0); Mean Platelet Volume 10.7 fL (7.4-10.4); Platelet Count 239 10^3/uL (130-400); Red Blood Cell Count 3.23 10^6/uL (4.70-6.10); Red Cell Dist. Width 14.3 % (11.5-14.5); White Blood Cell Count 6.5 10^3/uL (4.8-10.8)
[2023-12-31 07:20] LABS: Blood Urea Nitrogen 35 mg/dl (9-20); Calcium 7.8 mg/dl (8.4-10.2); Carbon Dioxide 28 mmol/L (22-30); Chloride 103 mmol/L (98-107); Estimated Creatinine Clearance 66 ml/min; Glucose 104 mg/dl (70-99); Magnesium 2.3 mg/dl (1.6-2.3); Sodium 135 mmol/L (135-145); eGFR > 60.00
[2023-12-31 07:37] VITALS: BP 104/65
--- NOTE | 2023-12-31 08:04 | W.PN.HOSP.TC ---
Today's Communication/Plan
-
see bold
Assessment / Plan
Assessment / Plan
HPI: 83yo M with PMH Senile Dementia, HTN, Urinary Retention/BPH, Chronic Constipation presents to ER s/p Fall from [facility]. Of note pt had a fall in October and underwent Left Hip Hemiarthroplasty by Dr. Dumont on 10/28. As per
he fell out of bed but fall was unwitnessed. Pt 10/06 dementia is unable to give further details. Complains only of mild pain in left hip. ROS otherwise unattainable. does endorse concern regarding recurrent falls at [facility]. She reports
financial hardships. She confirms his DNR/DNI status. At baseline is he is AAOx1 and ambulates with a wheelchair. She reports him using 2LNC 'as needed' [facility] prior to [facility] today
#Acute right hip fracture status post mechanical fall
Appreciate orthopedic surgery input, s/p right hip hemiarthroplasty 12/[address] Neumann
Pain meds, laxatives, PT/OT
Likely can return to [facility] Monday or Monday
#Acute on chronic hypoxic respiratory failure
#Acute on chronic heart failure with a reduced ejection fraction
Chest x-ray/COVID/influenza negative
Resolved on IV lasix, now on RA, was requiring 4 L of oxygen, he was discharged on 2 L the last hospital admission
Echo EF 20-25%, stage 2 DD, +mod global hypokinesis, BNP 4590
Started on Lasix 40 mg IV daily and lisinopril 2.5 mg daily on 12/29 by cardiology
Monitor creatinine, trend weights
Continue incentive spirometry, bronchodilators, monitor
#Advanced Dementia / Anxiety
AAOx1 Baseline. Ambulates with wheelchair.
Coninue memantine, aricept, sertraline, trazodone
Did require restraints with hand mitts last admission
Patient from [facility]
Continue IV Haldol as needed
#Cardiomyopathy
Started on lisinopril 2.5 mg daily by cardiology 12/29, continue Coreg
#Acute blood loss anemia from surgery
Hemoglobin 9.9 today, was 10.1, was 11.9 prior to surgery
Continue to monitor
#Chronic Urinary Retention/BPH
Chronic. Continue retention protocol. Often attributed to constipation -currently on aggressive bowel regimen
Continue home doxazosin
#Chronic Constipation
Continue aggressive bowel regimen
DVT prophylaxis�subcu lovenox
DNR
Updated daughter on phone 12/29, discussed hospice as a future possibility
Physical Exam
General: Frail, elderly, no acute distress
HEENT: Normocephalic, Atraumatic, EOMI, MMM
Respiratory: Clear to Auscultation bilaterally
Cardiac: Normal S1/S2, Regular Rate and Rhythm
GI: Soft, Nontender, Nondistended, Normal Bowel Sounds
Extremities: No Clubbing, Cyanosis
Right hip incision dressed
Neuro: Pleasantly confused
Anticipated Discharge: 24 - 48 hours
Subjective/Interval History
-
Date of Service: December 31, 2023
Patient does not answer any questions. He mumbles. No fever, no vomiting.
Objective Data
-
Labs:
Laboratory Results
12/31/23
06:10
WBC 6.5
Hgb 9.9 L
Hct 30.1 L
Plt Count 239
Sodium 135
Potassium 4.0
Chloride 103
Carbon Dioxide 28
BUN 35 H
Creatinine 0.9
Glucose 104 H
Calcium 7.8 L
Vital Signs:
Vital Signs
Temp Pulse Resp BP Pulse Ox
97.7 F 78 17 104/65 97
12/31/23 07:37 12/31/23 07:37 12/31/23 07:37 12/31/23 07:37 12/31/23 07:37
I&O
12/30/23 12/31/23 01/01/24
06:59 06:59 06:59
Intake Total 240 / 240 640 / 640
Balance 240 / 240 640 / 640
[2023-12-31] MEDS: MIRALAX 17 GRAMS PO ×2 (08:47→19:23)
[2023-12-31] MEDS: TYLENOL 1000 MG PO ×3 (08:47→21:31)
[2023-12-31] MEDS: LASIX 40 MG IV (08:48)
[2023-12-31] MEDS: ARICEPT 10 MG PO (08:48)
[2023-12-31] MEDS: COREG 3.125 MG PO ×2 (08:48→19:23)
[2023-12-31] MEDS: SENOKOT-S PO ×2 (08:48→11:48)
[2023-12-31] MEDS: ZESTRIL 2.5 MG PO (08:49)
[2023-12-31] MEDS: ZOLOFT 50 MG PO (08:50)
--- NOTE | 2023-12-31 11:01 | W.PN.CARDCBS ---
Today's Communication / Plan
-
Continue IV Lasix
Consider change to oral Lasix on 12/31 as oxygenation has improved and oxygen level has improved. Patient reportedly on 2 L at [facility] and currently on 1 L.
Conservative treatment with dementia
Impression / Plan
-
Primary Wastewater Project Engineer: unknown
Assessment:
Presentation with unwitnessed fall
R femur fracture status post ORIF 12/28/2023
Acute systolic CHF
Cardiomyopathy with ejection fraction of 20-25% 12/27/2023
fall with L hip fracture s/p hemiarthroplasty 10/2023
Anemia
dementia
HTN
BPH
DNR/DNI
ECHO 12/27/23: Severely reduced left ventricular systolic function with a EF estimated 20-25% by [facility]'s method and global hypokinesis with regional variations. Grade 2 diastolic dysfunction. Normal RV size and systolic function. Mild to
moderate MR. Mild to moderate TR. Estimated pulmonary artery pressure estimated 35 mmHg. No prior study available.
Plan:
Difficult examination but is down to 1 L. Patient reportedly on 2 L at [facility]
We will continue IV Lasix and consider change to oral Lasix on 12/31
Continue Coreg and low-dose lisinopril
Conservative treatment given severe dementia
Discussed with nursing at bedside
PREADMIT DATA
83-year-old gentleman with advanced dementia, [place] with multiple falls who presented following an unwitnessed fall with acute right femur fracture status post ORIF 12/28/2023. He also has a recent left hip hemiarthroplasty October 2023
after a fall.
Progress Note - Wastewater Project Engineer
Subjective
Date of Service: December 31, 2023
Patient sleeping and not easily arousable
Objective
Labs:
12/31/23 06:10
12/31/23 06:10
Labs
Hgb 9.9 g/dL (13.0-18.0) L 12/31/23 06:10
Hct 30.1 % (39.0-52.0) L 12/31/23 06:10
Plt Count 239 10^3/uL (130-400) 12/31/23 06:10
PT 14.7 Sec (11.4-14.6) H 12/26/23 22:55
INR 1.17 12/26/23 22:55
APTT 28.0 Sec (23.4-35.0) 12/26/23 22:55
Sodium 135 mmol/L (135-145) 12/31/23 06:10
Potassium 4.0 mmol/L (3.5-5.1) 12/31/23 06:10
BUN 35 mg/dl (9-20) H 12/31/23 06:10
Creatinine 0.9 mg/dL (0.7-1.3) 12/31/23 06:10
Glucose 104 mg/dl (70-99) H 12/31/23 06:10
Vital Signs and I&O:
Vital Signs
Temp Pulse Resp BP Pulse Ox
97.7 F 79 17 104/65 91
12/31/23 07:37 12/31/23 08:49 12/31/23 07:37 12/31/23 08:49 12/31/23 08:20
Vital Signs
Temp Pulse Resp BP Pulse Ox
97.7 F 79 17 104/65 91
12/31/23 07:37 12/31/23 08:49 12/31/23 07:37 12/31/23 08:49 12/31/23 08:20
Intake & Output
12/29/23 12/30/23 12/31/23 01/01/24
06:59 06:59 06:59 06:59
Intake Total 100 / 100 240 / 240 640 / 640
Balance 100 / 100 240 / 240 640 / 640
Physical Exam
Physical Exam
General: Sleeping
Neck: Supple, no JVD, HJR, carotids +2 B/L, no bruits bilaterally.
Heart: Non displaced PMI, RRR, no murmurs, No S3, S4, no rubs.
Lungs: Poor effort
Extremities: No clubbing, cyanosis or edema bilaterally.
Neuro: Sleeping
[2023-12-31 11:22] VITALS: BP 145/68
[2023-12-31 15:50] VITALS: BP 109/57
[2023-12-31] MEDS: LOVENOX 40 MG SC (17:10)
[2023-12-31] MEDS: NAMENDA 10 MG PO (17:10)
[2023-12-31] MEDS: CARDURA 4 MG PO (17:10)
[2023-12-31 19:20] VITALS: BP 114/58
[2023-12-31] MEDS: SENOKOT-S 2 TABLET PO (19:23)
[2023-12-31] MEDS: DESYREL 25 MG PO (21:31)
[2023-12-31 23:07] VITALS: BP 98/59
[2024-01-01 03:23] VITALS: BP 116/67
[2024-01-01 05:05] VITALS: BMI 28.6
[2024-01-01 06:18] LABS: Hematocrit 30.7 % (39.0-52.0); Hemoglobin 10.5 g/dL (13.0-18.0); Mean Corp Hgb Conc. 34.2 g/dL (33.0-37.0); Mean Corpuscular Hgb 30.8 pg (27.0-31.0); Mean Platelet Volume 10.3 fL (7.4-10.4); Platelet Count 269 10^3/uL (130-400); Red Blood Cell Count 3.41 10^6/uL (4.70-6.10); White Blood Cell Count 8.1 10^3/uL (4.8-10.8)
[2024-01-01 06:46] LABS: Blood Urea Nitrogen 35 mg/dl (9-20); Calcium 7.7 mg/dl (8.4-10.2); Carbon Dioxide 28 mmol/L (22-30); Chloride 102 mmol/L (98-107); Estimated Creatinine Clearance 75 ml/min; Glucose 113 mg/dl (70-99); Magnesium 2.2 mg/dl (1.6-2.3); Potassium 3.9 mmol/L (3.5-5.1); Sodium 133 mmol/L (135-145); eGFR > 60.00
[2024-01-01 07:50] VITALS: BP 119/70
[2024-01-01] MEDS: ARICEPT 10 MG PO (08:35)
[2024-01-01] MEDS: ZESTRIL 2.5 MG PO (08:35)
[2024-01-01] MEDS: COREG 3.125 MG PO (08:35)
[2024-01-01] MEDS: ZOLOFT 50 MG PO (08:36)
[2024-01-01] MEDS: TYLENOL 1000 MG PO ×2 (08:36→16:58)
[2024-01-01] MEDS: LASIX 40 MG IV (08:36)
[2024-01-01] MEDS: MIRALAX 17 GRAMS PO (08:36)
[2024-01-01] MEDS: SENOKOT-S 2 TABLET PO (08:37)
[2024-01-01 09:39] VITALS: BP 114/68; PULSE 82; O2SAT 89
[2024-01-01 09:41] VITALS: BP 114/68; PULSE 82; O2SAT 89
--- NOTE | 2024-01-01 10:03 | W.PN.CARDCBS ---
Today's Communication / Plan
-
Oral furosemide
Discharge planning
Impression / Plan
-
Primary Product Blending Supervisor: unknown
Assessment:
Unwitnessed fall with R femur fracture status post ORIF 12/28/2023
Acute systolic CHF
Cardiomyopathy with ejection fraction of 20-25% 12/27/2023
Probable anterior NV October 2023
fall with L hip fracture s/p hemiarthroplasty 10/2023
Anemia
dementia
HTN
BPH
DNR/DNI
ECHO 12/27/23: Severely reduced left ventricular systolic function with a EF estimated 20-25% by [facility]'s method and global hypokinesis with regional variations. Grade 2 diastolic dysfunction. Normal RV size and systolic function. Mild to
moderate MR. Mild to moderate TR. Estimated pulmonary artery pressure estimated 35 mmHg. No prior study available.
Plan:
Okay to transition to oral furosemide.
Given his comorbidities, along with low blood pressure, would not make major attempt to further optimize GDMT beyond his current regimen.
Okay to proceed with discharge planning.
If discharged, recommended cardiac medications:
Doxazosin 2 mg a day (reduced dose)
Carvedilol 3.125 mg daily
Lisinopril 2.5 mg daily
Furosemide 40 mg daily
Aspirin 81 mg daily (patient likely had large anterior NV October 2023)
Spironolactone 12.5 mg daily
Atorvastatin 20 mg a day
Basic metabolic panel in 1 week
PREADMIT DATA
83-year-old gentleman with advanced dementia, intermediate with multiple falls who presented following an unwitnessed fall with acute right femur fracture status post ORIF 12/28/2023. He also has a recent left hip hemiarthroplasty October 2023
after a fall.
Progress Note - Product Blending Supervisor
Subjective
Date of Service: January 01, 2024:
Allergies: None
Outpatient medications: Aricept, doxazosin 4 mg daily, DuoNebs, memantine, sertraline 50, Desyrel 25
Current medications: Aricept 10 mg daily, doxazosin 4 mg at bedtime, Namenda 10 mg daily, sertraline 50 mg daily, trazodone 25 nightly, carvedilol 3.125 twice daily,, Lovenox, lisinopril 2.5 mg daily, furosemide 40 mg a day, Senokot, polyethylene.
PMH/PSH/SH/FH: Reviewed
ROS: Reviewed
Hemoglobin 10.5, sodium 133, potassium 3.9, BUN and creatinine 35 and 0.8,
Objective
Labs:
01/01/24 06:05
01/01/24 06:05
Labs
Hgb 10.5 g/dL (13.0-18.0) L 01/01/24 06:05
Hct 30.7 % (39.0-52.0) L 01/01/24 06:05
Plt Count 269 10^3/uL (130-400) 01/01/24 06:05
PT 14.7 Sec (11.4-14.6) H 12/26/23 22:55
INR 1.17 12/26/23 22:55
APTT 28.0 Sec (23.4-35.0) 12/26/23 22:55
Sodium 133 mmol/L (135-145) L 01/01/24 06:05
Potassium 3.9 mmol/L (3.5-5.1) 01/01/24 06:05
BUN 35 mg/dl (9-20) H 01/01/24 06:05
Creatinine 0.8 mg/dL (0.7-1.3) 01/01/24 06:05
Glucose 113 mg/dl (70-99) H 01/01/24 06:05
Vital Signs and I&O:
Vital Signs
Temp Pulse Resp BP Pulse Ox
36.7 C 80 18 119/70 95
01/01/24 07:50 01/01/24 08:36 01/01/24 07:50 01/01/24 08:36 01/01/24 08:00
Vital Signs
Temp Pulse Resp BP Pulse Ox
36.7 C 80 18 119/70 95
01/01/24 07:50 01/01/24 08:36 01/01/24 07:50 01/01/24 08:36 01/01/24 08:00
Intake & Output
12/30/23 12/31/23 01/01/24 01/02/24
07:59 07:59 07:59 07:59
Intake Total 240 / 240 640 / 640 1060 / 1060
Balance 240 / 240 640 / 640 1060 / 1060
Physical Exam
Physical Exam
119/70, pulse 80, respiratory rate 18, afebrile, sats 95%
No distress, will follow simple commands, awake, head neck exam unremarkable, lungs clear, distant heart tones, abdomen benign, extremities without edema, neuro nonfocal but severe cognitive impairment with very limited verbalization
[2024-01-01 11:14] VITALS: BP 106/64
--- NOTE | 2024-01-01 11:50 | WOUNDNOTE ---
WENDY RN note: Patient admitted with R hip fracture s/p fall.
See H&P for complete history. From [facility].
PMH:Alzheimer's/ dementia, hernia repair, L hip hemiarthroplasty and HTN.
Wound Location and type/assessment: Patient admitted with: Gluteal cleft MASD, sacral redness. Two tiny openings, btw. cleft, no drainage. Nurse assisted with turning patient, incontinent of soft stool and large amt of urine. Heels are dry but
intact. Patient cooperative with care.
Appetite: IDDSI diet, adequate.
Pressure redistribution devices in place: Waffle air overlay, palm check done. Turning schedule enforced states nurse. Air cushion on pillow placed under calves to offload heels.
Plan: After skin care, Calazime ointment applied to shaniqua/coccyx area. Patient repositioned in bed with assist from nurse. Protective foams re applied to heels. Care plan to be updated. Will sign off. Reconsult as needed.
Note to case management of equipment requested for discharge: Air mattress.
[2024-01-01] MEDS: ALDACTONE 12.5 MG PO (13:18)
--- NOTE | 2024-01-01 13:38 | W.PN.HOSP.TC ---
Today's Communication/Plan
-
d/c to [facility]
Assessment / Plan
Assessment / Plan
#Acute right hip fracture status post mechanical fall
Appreciate orthopedic surgery input, s/p right hip hemiarthroplasty 12/[address] Neumann
Not requiring any oxycodone for last 48 hours.
Patient on Lovenox 40 mg every afternoon for DVT prophylaxis, changed to Eliquis 2.5 mg twice daily for 30 days for DVT prophylaxis at discharge
#Acute on chronic hypoxic respiratory failure
#Acute on chronic heart failure with a reduced ejection fraction
Chest x-ray/COVID/influenza negative
Echo EF 20-25%, stage 2 DD, +mod global hypokinesis, BNP 4590
Patient changed to oral Lasix 40 mg daily.
Also being discharged on Coreg/lisinopril/aspirin/statin/Aldactone
Cardiology cleared for discharge.
#Advanced Dementia / Anxiety
AAOx1 Baseline. Ambulates with wheelchair.
Coninue memantine, aricept, sertraline, trazodone
Did require restraints with hand mitts last admission
Patient from [facility]
Continue IV Haldol as needed
#Cardiomyopathy
Started on lisinopril 2.5 mg daily by cardiology 12/29, continue Coreg
#Acute blood loss anemia from surgery
Hemoglobin 9.9 today, was 10.1, was 11.9 prior to surgery
Continue to monitor
#Chronic Urinary Retention/BPH
Chronic. Continue retention protocol. Often attributed to constipation -currently on aggressive bowel regimen
Continue home doxazosin
#Chronic Constipation
Continue aggressive bowel regimen
DVT prophylaxis�subcu lovenox
DNR
Dr Rodarte - Updated daughter on phone 12/29, discussed hospice as a future possibility
More than 30 minutes spent in discharge including
Final examination of the patient
Summarizing hospital stay
Instructions for continuing care to all relevant caregivers
Preparation of discharge records, prescriptions, and referral forms
Total time spent (in minutes): 38 mins
Anticipated Discharge: Today
Subjective/Interval History
-
Date of Service: January 01, 2024
No reported issues overnight
Objective Data
-
Labs:
Laboratory Results
01/01/24
06:05
WBC 8.1
Hgb 10.5 L
Hct 30.7 L
Plt Count 269
Sodium 133 L
Potassium 3.9
Chloride 102
Carbon Dioxide 28
BUN 35 H
Creatinine 0.8
Glucose 113 H
Calcium 7.7 L
Vital Signs:
Vital Signs
Temp Pulse Resp BP Pulse Ox
97.9 F 78 18 104/56 99
01/01/24 11:14 01/01/24 13:18 01/01/24 11:14 01/01/24 13:18 01/01/24 11:14
I&O
12/31/23 01/01/24 01/02/24
06:59 06:59 06:59
Intake Total 640 / 640 1060 / 1060
Balance 640 / 640 1060 / 1060
Review of Systems
-
Unable to obtain full review of systems at this time due to: Dementia
Physical Exam
-
General: No Apparent Distress and Comfortable
HEENT: Negative Oxygen
Respiratory: Clear to Auscultation
Cardiac: Regular Rhythm and S1/S2; Negative Murmur or Rub
GI: Soft, Nontender and Nondistended
Musculoskeletal: No Edema and Other (Right hip dressing in place, no bleeding at site)
Neuro: Awake, Alert and Nonfocal/Grossly Intact
Psych: Calm
--- NOTE | 2024-01-01 14:30 | CM ---
Addendum entered by Keisha Montejo RN 01/01/24 15:16:
Left two message on the patient's spouses phone regarding discharge today and time of transport is 6:00pm. CM contact inform also provided.
Original Note:
Reviewed the chart notes. IMM placed on chart. Patient is to be discharged today to [facility].
Call report to: [phone]
Fax report to: [phone]
Medical necessity and transport form on [facility].
[2024-01-01 15:30] VITALS: BP 109/63
[2024-01-01] MEDS: CARDURA 2 MG PO (16:59)
[2024-01-01] MEDS: LIPITOR 20 MG PO (17:00)
[2024-01-01] MEDS: LOVENOX 40 MG SC (17:00)
[2024-01-01] MEDS: NAMENDA 10 MG PO (17:00)
--- NOTE | 2024-01-02 08:04 | W.DCSUMMARY ---
Discharge Summary
Discharge Data
Date of Admission: 12/27/23
Date of Discharge: 01/01/24
-
Pending Results: No
Hospital Course
Discharging Physician : Dr Shivam May
Disposition : SNF rehab
Primary care physician : Dr Irineo Franklin
Principal Discharge diagnosis :
Right hip fracture post mechanical fall
Acute on chronic hypoxic respiratory failure
Acute on chronic systolic congestive heart failure
Acute blood loss anemia from surgery
Chronic Discharge diagnosis :
Advanced dementia
Chronic urinary retention
Benign prostatic hyperplasia
Constipation
Hospital Course :
Patient is a 83-year-old male with above-mentioned past medical history was sent from [facility] after patient had a mechanical fall at [facility]. Patient did have mechanical fall causing left hip fracture in October 28. Patient x-ray in
ER which showed right hip fracture. Patient was admitted to hospital and orthopedic surgery was consulted for further help. After medical stabilization patient underwent uneventful right hip hemiarthroplasty. Orthopedic surgery recommended 4
weeks of chemotherapy prophylaxis and patient was discharged on Eliquis 2 and half milligram twice daily.
patient was also noted to having hypoxic respiratory failure in the ER. Patient does have history of systolic heart failure with EF of 20 to 25%. Patient was checked for COVID/influenza and was negative. Patient was given IV diuretics therapy.
Cardiology was following along. Patient was transition to oral Lasix at discharge. Patient was also discharged on regimen of Coreg/lisinopril/statin/Aldactone.
Important imaging findings :
None
Procedure findings :
None
Discharge Plan
-
Patient Disposition: Group Home/SNF
Discharge Diagnosis/Procedures: Right hip fracture
Condition: Fair
Diet: Regular
Activity: As tolerated and With Walker
Driving Restrictions: No driving
Bathing Restrictions: OK to Shower
Activity Restrictions/Additional Instructions:
buttocks: after cleaning with soap and water, apply barrier cream daily and prn soilage
air overlay or air mattress
turning schedule
pillow under calves
Referrals:
Irineo Franklin DO [Family Provider] - in one week
Prescriptions:
New
furosemide 40 mg Tablet
40 mg PO DAILY Qty: 30 0RF
atorvastatin 20 mg Tablet
20 mg PO QPM Qty: 30 0RF
acetaminophen [Tylenol Extra Strength] 500 mg Tablet
1,000 mg PO TID Qty: 30 0RF
spironolactone 25 mg Tablet
12.5 mg PO DAILY Qty: 30 0RF
carvedilol 3.125 mg Tablet
3.125 mg PO BID Qty: 30 0RF
bisacodyl 10 mg Suppository
10 mg CA [id number] PRN (Reason: constipation) Qty: 10 0RF
lisinopril 2.5 mg Tablet
2.5 mg PO DAILY Qty: 30 0RF
doxazosin 2 mg Tablet
2 mg PO QPM Qty: 30 0RF
Eliquis 2.5 mg tablet
2.5 mg PO BID Qty: 60 0RF
Rx Instructions:
FOR 1 MONTH ONLY POST HIP HEMIARTHROPLASTY DVT PROPHYLAXIS
aspirin 81 mg tablet,delayed release (DR/EC)
81 mg PO DAILY Qty: 30 0RF
Continued
donepezil [Aricept] 10 mg Tablet
10 mg PO DAILY
sertraline 50 mg Tablet
50 mg PO DAILY
memantine 10 mg Tablet
10 mg PO QPM
ipratropium-albuterol 0.5 mg-3 mg(2.5 mg base)/3 mL Solution For Nebulization
3 ml INHALATION R Q6 PRN (Reason: wheezing)
trazodone 50 mg Tablet
25 mg PO HS
sennosides-docusate sodium [Senna-S] 8.6-50 mg Tablet
2 tab-cap PO DAILY
magnesium hydroxide [Milk of Magnesia] 400 mg/5 mL Suspension
30 ml PO HS PRN (Reason: constipation)
bisacodyl 10 mg suppository
10 mg CA DAILY PRN (Reason: if mom/lactulose is ineffective)
Discontinued
doxazosin 4 mg Tablet
4 mg PO QPM
acetaminophen 500 mg Tablet
1,000 mg PO Q12
acetaminophen 325 mg tablet
650 mg PO DAILY PRN (Reason: fever>100.4)
Discharge Orders:
Discharge Patient (As Directed); Ordered 01/01/24
Ordered By: Shivam May
Discharge Date and Time
Discharge Date/Time: 01/01/24 18:26
Print Language: MALTESE
--- NOTE | 2024-01-02 12:14 | PN.CDI ---
CDI
- -
CDI:
Physician Documentation Request
Admit Date: 12/27/23 00:19
Dear Doctor Lalo,
Please review the following and provide your response in the progress notes.
Clinical Indicators:
- 12/31 PN 'Acute on chronic heart failure with a reduced ejection fraction'
- 12/31 Cardiology 'Acute systolic CHF'
- per H&P - no pmh CHF
In an attempt to clarify potentially conflicting documentation, please clarify the acuity of the systolic CHF:
Acute HFrEF
Acute on chronic HFrEF
Other
Use of terms such as suspected, likely, concern for, or probable (associated with a specific diagnosis that is being evaluated, monitored, or treated as if it exists) are acceptable and can be coded in the inpatient setting, when documented at the
time of discharge.
Thank you,
Robert Elder RN
CDI Specialist
Please use your independent medical judgment in providing your response.
== END 2024-01-01 18:26 | DRG 521 ==
LOC: 2 SOUTH 00:19
PROVIDERS: Family Medicine; ADMITTING PHYSICIAN Internal Medicine; ATTENDING PHYSICIAN Hospitalist; CONSULT PHYSICIAN Internal Medicine Cardiovascular Disease; CONSULT PHYSICIAN Orthopaedic Surgery; EMERGENCY PHYSICIAN Student in an Organized Health Care Education/Training Program; FAMILY PHYSICIAN Student in an Organized Health Care Education/Training Program
PROC: 0SRR0J9 Replacement of Right Hip Joint, Femoral Surface with Synthetic Substitute, Cemented, Open Approach (ICD-10-PCS; 2023-12-28)
DX: S72.011A Unspecified intracapsular fracture of right femur, initial encounter for closed fracture (principal); I50.23 Acute on chronic systolic (congestive) heart failure; J96.21 Acute and chronic respiratory failure with hypoxia; D62 Acute posthemorrhagic anemia; F02.C4 Dementia in other diseases classified elsewhere, severe, with anxiety; I42.9 Cardiomyopathy, unspecified; G30.9 Alzheimer's disease, unspecified; I11.0 Hypertensive heart disease with heart failure; R33.8 Other retention of urine; N40.1 Benign prostatic hyperplasia with lower urinary tract symptoms; K59.09 Other constipation; R29.6 Repeated falls; W19.XXXA Unspecified fall, initial encounter; Z66 Do not resuscitate; Z91.81 History of falling; Y93.9 Activity, unspecified; Y92.129 Unspecified place in nursing home as the place of occurrence of the external cause; Z99.3 Dependence on wheelchair; Z99.81 Dependence on supplemental oxygen; Z59.89 Other problems related to housing and economic circumstances; Z11.52 Encounter for screening for COVID-19
CPT/HCPCS: 70450; 71045; 72125; 72192; 73502; 80048; 80053; 83735; 83880; 84484; 85025; 85027; 85610; 85730; 86850; 86900; 86901; 87070; 87502; 87811; 93005; 93306; 96374; 96375; 97110; 97163; 97167; 97530; 97535; 99285; C1713; C1776; Q9950

== ENCOUNTER → 2024-02-05 11:05 | Outpatient (REF) | payer OTHER, MEDICARE, BC, SELFPAY ==
[2024-02-05 11:17] LABS: % Basophils 0.3 % (0-2); % Eosinophils 2.8 % (0-6); % Immature Granulocytes 0.3 % (0-0.5); % Lymphocytes 24.2 % (20.5-51.1); % Monocytes 10.5 % (1.7-9.3); % Neutrophils 61.9 % (42.2-75.2); Absolute Eosinophils 0.2 10^3/uL (0-0.7); Absolute Lymphocytes 1.6 10^3/uL (1.2-3.4); Absolute Monocytes 0.7 10^3/uL (0.1-0.6); Absolute Neutrophils 4.2 10^3/uL (1.4-6.5); Hematocrit 33.6 % (39.0-52.0); Hemoglobin 10.8 g/dL (13.0-18.0); Mean Corp Hgb Conc. 32.1 g/dL (33.0-37.0); Mean Corpuscular Volume 93.3 fL (80.0-94.0); Mean Platelet Volume 10.6 fL (7.4-10.4); Nucleated Red Blood Cells % 0 % (-); Platelet Count 286 10^3/uL (130-400); Red Cell Dist. Width 14.1 % (11.5-14.5); White Blood Cell Count 6.7 10^3/uL (4.8-10.8)
[2024-02-05 11:35] LABS: ALT (SGPT) 29 U/L (0-50); AST (SGOT) 31 U/L (17-59); Albumin 3.2 g/dl (3.5-5.0); Alkaline Phosphatase 160 U/L (38-126); Blood Urea Nitrogen 43 mg/dl (9-20); Calcium 8.4 mg/dl (8.4-10.2); Carbon Dioxide 24 mmol/L (22-30); Chloride 109 mmol/L (98-107); Glucose 95 mg/dl (70-99); Magnesium 2.3 mg/dl (1.6-2.3); Potassium 3.8 mmol/L (3.5-5.1); Sodium 143 mmol/L (135-145); Total Bilirubin 0.5 mg/dl (0.2-1.3); eGFR > 60.00
[2024-02-05 11:41] LABS: NT-proBNP 3510 pg/ml
== END ==
LOC: OLABN 11:05
PROVIDERS: ATTENDING PHYSICIAN Student in an Organized Health Care Education/Training Program
DX: J96.21 Acute and chronic respiratory failure with hypoxia (principal); R60.9 Edema, unspecified; I50.32 Chronic diastolic (congestive) heart failure
CPT/HCPCS: 36415; 80053; 83735; 83880; 85025

== ENCOUNTER → 2024-02-08 10:06 | Outpatient (REF) | payer OTHER, MEDICARE, BC, SELFPAY ==
[2024-02-08 11:37] LABS: Blood Urea Nitrogen 34 mg/dl (9-20); Carbon Dioxide 25 mmol/L (22-30); Chloride 107 mmol/L (98-107); Glucose 90 mg/dl (70-99); Potassium 3.5 mmol/L (3.5-5.1); Sodium 141 mmol/L (135-145); eGFR > 60.00
[2024-02-08 11:43] LABS: NT-proBNP 4190 pg/ml
== END ==
LOC: OLABN 10:06
PROVIDERS: ATTENDING PHYSICIAN Student in an Organized Health Care Education/Training Program
DX: J96.21 Acute and chronic respiratory failure with hypoxia (principal)
CPT/HCPCS: 36415; 80048; 83735; 83880

== ENCOUNTER → 2024-02-12 10:07 | Outpatient (REF) | payer OTHER, MEDICARE, BC, SELFPAY ==
[2024-02-12 11:47] LABS: Blood Urea Nitrogen 37 mg/dl (9-20); Calcium 7.9 mg/dl (8.4-10.2); Carbon Dioxide 27 mmol/L (22-30); Chloride 104 mmol/L (98-107); Glucose 99 mg/dl (70-99); Potassium 3.8 mmol/L (3.5-5.1); Sodium 137 mmol/L (135-145); eGFR > 60.00
[2024-02-12 11:53] LABS: NT-proBNP 2750 pg/ml
== END ==
LOC: OLABN 10:07
PROVIDERS: ATTENDING PHYSICIAN Student in an Organized Health Care Education/Training Program
DX: J96.21 Acute and chronic respiratory failure with hypoxia (principal)
CPT/HCPCS: 36415; 80048; 83880

== ENCOUNTER → 2024-02-28 15:03 | Outpatient (REF) | payer MEDICARE, BC, SELFPAY ==
[2024-02-28 19:08] LABS: Urine Albumin Negative (Neg - Trace); Urine Bilirubin Negative (Negative); Urine Character Clear (Clear); Urine Color Yellow; Urine Glucose Negative (Negative); Urine Ketone Negative (Negative); Urine Leukocyte Negative (Negative); Urine Nitrite Negative (Negative); Urine Occult Blood Negative (Negative); Urine Specific Gravity 1.015 (<1.030); Urine Urobilinogen Negative (Neg - 1+)
== END ==
LOC: OLABN 15:03
PROVIDERS: ATTENDING PHYSICIAN Student in an Organized Health Care Education/Training Program
DX: R82.90 Unspecified abnormal findings in urine (principal); N40.0 Benign prostatic hyperplasia without lower urinary tract symptoms
CPT/HCPCS: 81003; 87086

== ENCOUNTER → 2024-05-23 10:19 | Outpatient (REF) | payer BC, OTHER, SELFPAY ==
[2024-05-23 11:34] LABS: HDL Cholesterol 37 mg/dl; LDL Cholesterol, Calculated 60 mg/dl; Total Cholesterol 109 mg/dl (50-199); Triglyceride 62 mg/dl (10-149); Very Low Density Lipoprotein 12 mg/dl (0-30)
== END ==
LOC: OLABN 10:19
PROVIDERS: ATTENDING PHYSICIAN Student in an Organized Health Care Education/Training Program
DX: E78.5 Hyperlipidemia, unspecified (principal)
CPT/HCPCS: 36415; 80061

== ENCOUNTER → 2024-07-09 11:24 | Outpatient (REF) | payer BC, OTHER, SELFPAY ==
[2024-07-09 11:48] LABS: % Basophils 0.4 % (0-2); % Eosinophils 3.9 % (0-6); % Immature Granulocytes 1.1 % (0-0.5); % Monocytes 7.5 % (1.7-9.3); % Neutrophils 73.1 % (42.2-75.2); Absolute Eosinophils 0.4 10^3/uL (0-0.7); Absolute Immature Granulocytes 0.1 10^3/uL (0-0.05); Absolute Lymphocytes 1.3 10^3/uL (1.2-3.4); Absolute Monocytes 0.7 10^3/uL (0.1-0.6); Absolute Neutrophils 6.6 10^3/uL (1.4-6.5); Hematocrit 33.6 % (39.0-52.0); Mean Corp Hgb Conc. 32.7 g/dL (33.0-37.0); Mean Corpuscular Hgb 30.1 pg (27.0-31.0); Mean Corpuscular Volume 91.8 fL (80.0-94.0); Mean Platelet Volume 10.2 fL (7.4-10.4); Nucleated Red Blood Cells % 0 % (-); Platelet Count 328 10^3/uL (130-400); Red Blood Cell Count 3.66 10^6/uL (4.70-6.10); Red Cell Dist. Width 13.5 % (11.5-14.5)
[2024-07-09 11:54] LABS: ALT (SGPT) 35 U/L (0-50); AST (SGOT) 36 U/L (17-59); Albumin 3.2 g/dl (3.5-5.0); Alkaline Phosphatase 115 U/L (38-126); Blood Urea Nitrogen 34 mg/dl (9-20); Calcium 8.2 mg/dl (8.4-10.2); Carbon Dioxide 24 mmol/L (22-30); Chloride 109 mmol/L (98-107); Glucose 106 mg/dl (70-99); Potassium 4.3 mmol/L (3.5-5.1); Sodium 145 mmol/L (135-145); Total Bilirubin 0.4 mg/dl (0.2-1.3); Total Protein 6.2 g/dl (6.3-8.2); eGFR > 60.00
[2024-07-09 12:11] LABS: NT-proBNP 4310 pg/ml
== END ==
LOC: OLABN 11:24
PROVIDERS: ATTENDING PHYSICIAN Student in an Organized Health Care Education/Training Program
DX: M62.81 Muscle weakness (generalized) (principal); R05.9 Cough, unspecified
CPT/HCPCS: 36415; 80053; 83880; 85025

== ENCOUNTER → 2024-09-17 09:38 | Outpatient (REF) | payer BC, OTHER, SELFPAY ==
[2024-09-17 10:20] LABS: % Basophils 0.3 % (0-2); % Immature Granulocytes 0.3 % (0-0.5); % Lymphocytes 13.7 % (20.5-51.1); % Monocytes 12.2 % (1.7-9.3); % Neutrophils 73.5 % (42.2-75.2); Absolute Lymphocytes 0.9 10^3/uL (1.2-3.4); Absolute Monocytes 0.8 10^3/uL (0.1-0.6); Absolute Neutrophils 4.9 10^3/uL (1.4-6.5); Hematocrit 30.7 % (39.0-52.0); Hemoglobin 10.1 g/dL (13.0-18.0); Mean Corp Hgb Conc. 32.9 g/dL (33.0-37.0); Mean Corpuscular Hgb 31.3 pg (27.0-31.0); Mean Platelet Volume 10.2 fL (7.4-10.4); Nucleated Red Blood Cells % 0 % (-); Platelet Count 256 10^3/uL (130-400); Red Blood Cell Count 3.23 10^6/uL (4.70-6.10); Red Cell Dist. Width 14.6 % (11.5-14.5); White Blood Cell Count 6.6 10^3/uL (4.8-10.8)
[2024-09-17 10:35] LABS: Blood Urea Nitrogen 32 mg/dl (9-20); Carbon Dioxide 23 mmol/L (22-30); Chloride 103 mmol/L (98-107); Glucose 104 mg/dl (70-99); Potassium 4.4 mmol/L (3.5-5.1); Sodium 135 mmol/L (135-145); eGFR > 60.00
== END ==
LOC: OLABN 09:38
PROVIDERS: ATTENDING PHYSICIAN Student in an Organized Health Care Education/Training Program
DX: R50.9 Fever, unspecified (principal)
CPT/HCPCS: 36415; 80048; 85025

== ENCOUNTER → 2025-04-22 10:50 | Outpatient (REF) | payer BC, OTHER, SELFPAY ==
[2025-04-22 11:29] LABS: Hematocrit 31.4 % (39.0-52.0); Hemoglobin 10.3 g/dL (13.0-18.0); Mean Corp Hgb Conc. 32.8 g/dL (33.0-37.0); Mean Corpuscular Volume 92.1 fL (80.0-94.0); Nucleated Red Blood Cells % 0 % (-); Platelet Count 287 10^3/uL (130-400); Red Cell Dist. Width 13.9 % (11.5-14.5)
[2025-04-22 11:44] LABS: HDL Cholesterol 34 mg/dl; LDL Cholesterol, Calculated 58 mg/dl; Very Low Density Lipoprotein 9 mg/dl (0-30)
== END ==
LOC: OLABN 10:50
PROVIDERS: ATTENDING PHYSICIAN Student in an Organized Health Care Education/Training Program
DX: E78.5 Hyperlipidemia, unspecified (principal)
CPT/HCPCS: 36415; 80061; 85025

== ENCOUNTER → 2025-05-12 10:26 | Outpatient (REF) | payer BC, OTHER, SELFPAY ==
[2025-05-12 11:31] LABS: Hematocrit 31.8 % (39.0-52.0); Hemoglobin 10.4 g/dL (13.0-18.0); Mean Corp Hgb Conc. 32.7 g/dL (33.0-37.0); Mean Corpuscular Volume 94.1 fL (80.0-94.0); Nucleated Red Blood Cells % 0 % (-); Platelet Count 235 10^3/uL (130-400); Red Cell Dist. Width 14.4 % (11.5-14.5)
[2025-05-12 11:38] LABS: Blood Urea Nitrogen 27 mg/dl (9-20); Calcium 8.1 mg/dl (8.4-10.2); Carbon Dioxide 28 mmol/L (22-30); Chloride 107 mmol/L (98-107); Glucose 95 mg/dl (70-99); Potassium 3.4 mmol/L (3.5-5.1); Sodium 140 mmol/L (135-145); eGFR > 60.00
== END ==
LOC: OLABN 10:26
PROVIDERS: ATTENDING PHYSICIAN Student in an Organized Health Care Education/Training Program
DX: R50.9 Fever, unspecified (principal)
CPT/HCPCS: 36415; 80048; 85025

== ENCOUNTER → 2025-07-19 08:57 | Outpatient (REF) | payer BC, OTHER, SELFPAY | LOC: OLABN 08:57 | PROVIDERS: ATTENDING PHYSICIAN Student in an Organized Health Care Education/Training Program | DX: A04.71 Enterocolitis due to Clostridium difficile, recurrent (principal) | CPT/HCPCS: 87324; 87449 ==

== ENCOUNTER 2025-07-23 10:46 | Emergency (ER) | payer MEDICARE, BC, OTHER, SELFPAY ==
[2025-07-23] VITALS (9 sets, daily range): BP systolic 106–134; BP diastolic 56–77
--- NOTE | 2025-07-23 11:23 | ED.GENMED ---
History of Present Illness
General
Chief Complaint: Abdominal Symptoms
Time Seen by Provider: 07/23/25 11:02
History of Present Illness
History of Present Illness:
85-year-old male with history of severe Alzheimer's, hypertension, and hyperlipidemia presents to the emergency department for evaluation of worsening colonic ileus on outpatient x-rays from his nursing facility. Per nursing notes he had had
minimal bowel output but 2 days ago received an enema with good output. Serial x-rays revealed gradual progression of ileus with dilation of the large intestine maximized at 14 cm. The patient is unable to provide any history secondary to severe
dementia.
Past History
Past History
ED Past Medical History: Other (Dementia)
ED Past Surgical History: Negative Orthopedic
Patient has exhibited threatening behavior?: No
Social History
Tobacco: Non-smoker
Alcohol: None
Drug: None
Personal:
Living: with family
Employment: Retired
Review of Systems
Review of Systems
Allergies reviewed?: Yes
All Other Systems: ROS reviewed and negative except as documented in HPI and ROS
Phy Exam
Physical Exam
Physical Exam:
GEN: Well appearing, NAD, WDWN
HEENT: Oral mucosa moist, no scleral icterus
Cardiac: Regular rate and rhythm
Lung: No respiratory distress, no tachypnea
Abdomen: Distended but non rigid, no visible pain response
MSK: No gross deformity or injuries
Skin: Good color, no pallor or jaundice, no rashes
Neuro: AO x3, moves all extremities freely
Psych: Calm, cooperative
Course
Orders/Labs/Results
Orders:
Orders
07/23/25 11:22
CT Abd/Pel (IV only)-[facility] only Urgent
Comment: unable to drink PO due to dementia
Reason For Exam: worsening ileus on XR
07/23/25 11:31
Complete Blood Count/With Diff Urgent
Comprehensive Metabolic Panel Urgent
Lactic Acid Q4H
Comment: CANCEL 2nd LACTIC ACID IF 1st LACTIC ACID IS LESS THAN 2
07/23/25 16:16
Enema- Treatment ONCE
Type: Soap Suds
Abnormal Lab Results
07/23/25
11:31
RBC 4.07 L 10^6/uL
(4.70-6.10)
Hgb 12.2 L g/dL
(13.0-18.0)
Hct 37.9 L %
(39.0-52.0)
MCHC 32.2 L g/dL
(33.0-37.0)
Lymphocytes % 19.0 L %
(20.5-51.1)
Potassium 3.4 L mmol/L
(3.5-5.1)
BUN 22 H mg/dl
(9-20)
Glucose 151 H mg/dl
(70-99)
07/23/25 11:31
07/23/25 11:31
Vital Signs
Initial and Last Documented VS:
Initial Vital Signs
Temp Pulse Resp BP Pulse Ox
97.7 F 64 15 131/64 95
07/23/25 10:50 07/23/25 10:50 07/23/25 10:50 07/23/25 10:50 07/23/25 10:50
Last Documented Vital Signs
Temp Pulse Resp BP Pulse Ox
97.7 F 78 20 124/56 92
07/23/25 10:50 07/23/25 17:15 07/23/25 17:15 07/23/25 17:00 07/23/25 17:15
MDM/Problems Addressed
MDM/Problems Addressed:
Imaging ultimately showed no evidence for obstruction, stercoral colitis due to fecal impaction noted. Patient was given enema with voluminous bowel movement. No indication for admission. Patient to continue bowel regimen at his nursing facility
*Pulse Oximetry
SaO2: 95
Oxygen Mode of Delivery: Room air
Patient hypoxic: no
*Critical Care Note
Total Time (30-74mins, 75-104mins- exclusive of procedures): Not Applicable
ED Attending Note
-
Portions of this chart may have been created with voice recognition software.� Occasional wrong word or��sound alike� substitutions may have occurred due to the inherent limitations of voice recognition software.
Discharge Plan
Departure
Patient Disposition: Home (Routine Discharge)
Date of Disposition: 07/23/25
Time of Disposition: 17:26
Patient with high blood pressure during this ER visit?: No
Discharge Problem:
Fecal impaction, Stercoral colitis
Instructions: Constipation, Adult (DC)
Prescriptions:
No Action
donepezil [Aricept] 10 mg Tablet
10 mg PO QPM
sertraline 50 mg Tablet
50 mg PO DAILY
memantine 10 mg Tablet
10 mg PO QPM
trazodone 50 mg Tablet
25 mg PO HS
sennosides-docusate sodium [Senna-S] 8.6-50 mg Tablet
2 tab-cap PO QPM
magnesium hydroxide [Milk of Magnesia] 400 mg/5 mL Suspension
30 ml PO HS PRN (Reason: constipation)
furosemide 40 mg Tablet
40 mg PO DAILY Qty: 30 0RF
atorvastatin 20 mg Tablet
20 mg PO QPM Qty: 30 0RF
spironolactone 25 mg Tablet
12.5 mg PO DAILY Qty: 30 0RF
carvedilol 3.125 mg Tablet
3.125 mg PO BID Qty: 30 0RF
lisinopril 2.5 mg Tablet
2.5 mg PO DAILY Qty: 30 0RF
doxazosin 2 mg Tablet
2 mg PO QPM Qty: 30 0RF
loperamide 2 mg Tablet
2 mg PO Q6HPRN PRN (Reason: dirrhea)
aspirin 81 mg tablet,delayed release (DR/EC)
81 mg PO DAILY
acetaminophen [Tylenol Extra Strength] 500 mg tablet
1,000 mg PO TIDPRN PRN (Reason: mild pain)
bisacodyl 10 mg suppository
10 mg [place] [id number] PRN (Reason: if no bm aftr mom)
Referrals:
Irineo Franklin DO [Family Provider, Family Practice]
Activity Restrictions/Additional Instructions:
Jarred was given an enema and had multiple large bowel movements
Continue his current bowel regimen and please obtain follow up xrays in 2-3 days to reassess the large intestinal air
Interventions
Interventions:
*Risk Screen - Suicide Last Done: 07/23/25 10:50
*General Assessment Last Done: 07/23/25 10:50
*Neglect/Abuse Screening Last Done: 07/23/25 10:50
*ED- Fall Risk Assessment Last Done: 07/23/25 11:00
*ED COVID-19 Vaccine History Last Done: 07/23/25 11:00
*ED Influenza Vaccine History Last Done: 07/23/25 11:00
LQ-[id number]-[id number] Assessment Last Done: 07/23/25 10:50
Discharge Date and Time
Print Language: ROMANIAN
[2025-07-23 11:43] LABS: Hematocrit 37.9 % (39.0-52.0); Hemoglobin 12.2 g/dL (13.0-18.0); Mean Corp Hgb Conc. 32.2 g/dL (33.0-37.0); Mean Corpuscular Volume 93.1 fL (80.0-94.0); Nucleated Red Blood Cells % 0 % (-); Platelet Count 268 10^3/uL (130-400); Red Cell Dist. Width 14.4 % (11.5-14.5)
[2025-07-23 11:56] LABS: ALT (SGPT) 16 U/L (0-50); AST (SGOT) 21 U/L (17-59); Albumin 3.8 g/dl (3.5-5.0); Alkaline Phosphatase 100 U/L (38-126); Blood Urea Nitrogen 22 mg/dl (9-20); Calcium 8.7 mg/dl (8.4-10.2); Carbon Dioxide 29 mmol/L (22-30); Chloride 105 mmol/L (98-107); Glucose 151 mg/dl (70-99); Potassium 3.4 mmol/L (3.5-5.1); Sodium 138 mmol/L (135-145); Total Protein 7.0 g/dl (6.3-8.2); eGFR > 60.00
== END 2025-07-23 20:07 | disposition home or self-care (01) ==
LOC: EMR 10:46
PROVIDERS: Physician Assistant; EMERGENCY PHYSICIAN Emergency Medicine; FAMILY PHYSICIAN Student in an Organized Health Care Education/Training Program
DX: K52.89 Other specified noninfective gastroenteritis and colitis (principal); K56.41 Fecal impaction; E78.5 Hyperlipidemia, unspecified; G30.9 Alzheimer's disease, unspecified; F02.C0 Dementia in other diseases classified elsewhere, severe, without behavioral disturbance, psychotic disturbance, mood disturbance, and anxiety; I10 Essential (primary) hypertension
CPT/HCPCS: 99284; 74177; 80053; 83605; 85025; Q9967